=== PATIENT | female | born 1980 | race Caucasian/White ===

== ENCOUNTER 2023-03-11 09:03 | Observation (INO) | payer MEDICAID, SELFPAY ==
[2023-03-11] VITALS (8 sets, daily range): BP systolic 122–147; BP diastolic 70–98; PULSE 69–81; RESP 16–22; TEMP 36.5–36.7; O2SAT 96–100; BMI 42.0; BMI 41.4
--- NOTE | 2023-03-11 09:15 | ED.ABDPAIN1 ---
HPI - Abdominal Pain General Chief Complaint: Abdominal Pain Stated Complaint: FLANK PAIN Time Seen by Provider: 03/11/23 09:06 Source: patient Mode of arrival: walk-in Limitations: no limitations History of Present Illness HPI narrative: The patient presented to us with a almost 5 hours history of right-sided flank pain radiating to the suprapubic area associated with nausea no vomiting the pain is severe according to the patient There is no burning with urination or frequency and the patient denies any change in bowel movement History of hypertension hyperlipidemia Related Data Home Medications Medication Instructions Recorded Confirmed atorvastatin 80 mg tablet 80 mg PO DAILY 03/11/23 03/11/23 lisinopril 10 mg tablet 10 mg PO DAILY 03/11/23 03/11/23 metoprolol succinate 50 mg 50 mg PO DAILY 03/11/23 03/11/23 tablet,extended release 24 hr Allergies Allergy/AdvReac Type Severity Reaction Status Date / Time acetaminophen Allergy Mild Verified 03/11/23 09:10 [From Darvocet-N] propoxyphene Allergy Mild Verified 03/11/23 09:10 [From Darvocet-N] Review of Systems ROS Status of ROS 10 or more systems reviewed and unremarkable except as noted in history and below PFSH PFSH Social History Smoking status: Heavy tobacco smoker Exam Narrative Exam Narrative: Nurses notes and vital signs reviewed and patient is not hypoxic. General: Well-appearing and in no apparent distress. Skin: Warm, dry, no pallor noted. No rash. Head: Normocephalic, atraumatic. Neck: Supple, non-tender. Eye: Pupils are equal, round and EOMI. No scleral icterus. Ears, Nose, Mouth, and Throat: TM are clear, no nasal mucosal hypertrophy. Oral mucosa is moist, no posterior oropharynx erythema, uvula is mid-line Cardiovascular: Regular Rate and Rhythm without murmur, gallop or rub. Respiratory: No accessory muscle use or respiratory distress. Lungs are clear to auscultation, no wheezing, rales or rhonchi Chest Wall: no tenderness Back: No midline thoracic or lumbar vertebral tenderness. right CVA tenderness Musculoskeletal: normal ROM, no calf or popliteal tenderness, no lower extremity edema/swelling GI: Abdomen is soft, non-distended. Normal bowel sounds. suprapubic area tenderness Neurological: A&O x4. No cranial nerve dysfunction observed. No truncal ataxia. Moves all extremities. Sensation intact. Psychiatric: Cooperative and interactive. Normal mood and affect. Constitutional Vital Signs, click to edit/add: Last Vital Signs Temp 97.7 F 03/11/23 09:06 Pulse 77 03/11/23 10:43 Resp 18 03/11/23 10:43 BP 122/97 H 03/11/23 10:43 Pulse Ox 100 03/11/23 10:43 O2 Del Method Room Air 03/11/23 09:06 Course Vital Signs Vital signs: Vital Signs Temperature 97.7 F 03/11/23 09:06 Pulse Rate 70 03/11/23 09:06 Respiratory Rate 22 03/11/23 09:06 Blood Pressure 147/98 H 03/11/23 09:06 Pulse Oximetry 98 03/11/23 09:06 Oxygen Delivery Method Room Air 03/11/23 09:06 Temperature 97.7 F 03/11/23 09:06 Pulse Rate 77 03/11/23 10:43 Respiratory Rate 18 03/11/23 10:43 Blood Pressure 122/97 H 03/11/23 10:43 Pulse Oximetry 100 03/11/23 10:43 Oxygen Delivery Method Room Air 03/11/23 09:06 MDM - Abdominal Pain MDM Narrative Medical decision making narrative: The patient CBC shows leukocytosis chemistry was showing also some metabolic acidosis her lactic acid was 3.5 The patient have no tachycardia or hypotension and her urine shows some white blood cells but with the presentation right now and the fact that the CAT scan shows kidney stones the patient will be covered for possible UTI Blood culture and urine culture sent the patient was covered with Zosyn The patient case was discussed with Dr. Maldonado who will keep the patient n.p.o. right now we will admit her to the hospitalist care and Dr. Lindsay accepted the patient The patient CAT scan was discussed with the radiologist and apparently there is no obstruction in the right side 0.2 mm kidney stone at the UV junction The patient will continue hydration and monitoring in the hospital Lab Data Labs: Lab Results 03/11/23 03/11/23 03/11/23 Range/Units 09:10 09:14 09:15 WBC 14.7 H (4.0-11.0) 10^3/uL RBC 4.15 L (4.20-5.40) 10^6/uL Hgb 13.7 (12.0-16.0) g/dL Hct 40.7 (36.0-48.0) % MCV 98.1 (81.0-99.0) fL MCH 33.0 (26.7-34.0) pg MCHC 33.7 (29.9-35.2) g/dL RDW 12.1 (11.0-15.0) % Plt Count 463 H (150-450) 10^3/uL MPV 9.8 (9.5-13.5) fL Neut % (Auto) 73.8 (43.0-75.0) % Lymph % (Auto) 20.7 (20.5-60.0) % [place] % (Auto) 4.4 (1.7-12.0) % Eos % (Auto) 0.5 L (0.9-7.0) % Baso % (Auto) 0.4 (0.2-2.0) % Neut # (Auto) 10.9 H (1.4-6.5) 10^3/uL Lymph # (Auto) 3.1 (1.2-3.8) 10^3/uL [place] # (Auto) 0.7 (0.3-0.8) 10^3/uL Eos # (Auto) 0.1 (0.0-0.7) 10^3/uL Baso # (Auto) 0.1 (0.0-0.1) 10^3/uL Abs Immat Gran (auto) 0.03 (0.00-0.03) 10^3/uL Imm/Tot Granulo (auto) 0.2 (0.0-0.5) % Sodium 139 (136-145) mmol/L Potassium 3.6 (3.5-5.1) mmol/L Chloride 105 (98-107) mmol/L Carbon Dioxide 19.5 L (21.0-32.0) mmol/L Anion Gap 18.1 BUN 8.0 (7.0-18.0) mg/dL Creatinine 1.17 H (0.55-1.02) mg/dL Est GFR ( Amer) >60 (>=60) Est GFR (Non-Af Amer) 50 L (>=60) BUN/Creatinine Ratio 6.8 Glucose 155 H (74-106) mg/dL Lactate 3.5 H* (0.4-2.0) mmol/L Calcium 9.0 (8.5-10.1) mg/dL Total Bilirubin 0.4 (0.2-1.0) mg/dL AST 19 (15-37) U/L ALT 30 (14-59) U/L Alkaline Phosphatase 82 (46-116) U/L Total Protein 7.7 (6.4-8.2) g/dL Albumin 4.0 (3.4-5.0) g/dL Globulin 3.7 g/dL Albumin/Globulin Ratio 1.1 Serum HCG, Qual Negative (NEGATIVE) Urine Color Yellow (YELLOW) Urine Clarity Clear (CLEAR) Urine pH 5.5 (5.0-9.0) Ur Specific [place] >=1.030 A (1.005-1.025) Urine Protein Trace (NEG/TRACE) mg/dL Urine Glucose (UA) Negative (NEGATIVE) mg/dL Urine Ketones Negative (NEGATIVE) mg/dL Urine Occult Blood Moderate A (NEGATIVE) Urine Nitrite Negative (NEGATIVE) Urine Bilirubin Negative (NEGATIVE) Urine Urobilinogen 0.2 (0.2-1.0) EU/dL Ur Leukocyte Esterase Negative (NEGATIVE) Urine RBC 2-5 A (0-2) #/HPF Urine WBC 0-2 A (NONE SEEN) #/HPF Ur Squamous Epith Cells Moderate A (NONE/RARE) #/LPF Urine Crystals None seen (None Seen) #/HPF Urine Bacteria None seen (NONE SEEN) #/HPF Urine Casts Seen A (NONE SEEN) #/LPF Hyaline Casts Rare Urine Mucus Trace A (NONE SEEN) Ur Culture Indicated? No Discharge Plan Discharge Chief Complaint: Abdominal Pain Clinical Impression: UTI (urinary tract infection), Kidney calculi Patient Disposition: Admitted as Observation Time of Disposition Decision: 11:19 Condition: Good
--- NOTE | 2023-03-11 09:16 | CT_ITS ---
[address] [address] Patient Name: JESS ROBERTSON MRN: [id number] date: 1980 Sex: F Assigned Patient Location: ER Current Patient Location: ER Accession/Order Number: [id number] Exam Date: 03/11/2023 09:55 Report Date: 03/11/2023 10:43 At the request of: PEG TODD Procedure: CT abdomen pelvis wo con EXAM: CT abdomen pelvis wo con HISTORY: flank pain and possible kidney stone COMPARISON: 07/25/2022 TECHNIQUE: Axial CT imaging was performed through the abdomen and pelvis without intravenous contrast. Multiplanar reformats were performed. Dose reduction techniques were achieved by using automated exposure control and/or adjustment of mA and/or kV according to patient size and/or use of iterative reconstruction technique. FINDINGS: Lung bases: Lung bases are clear. No pleural effusion. GI upper: Small hiatal hernia. Liver: Normal size and contour. Gallbladder: No significant abnormality. No cholelithiasis. Biliary system: No intra or extrahepatic biliary ductal dilatation. Spleen: Normal size. Pancreas: Unremarkable. Adrenal glands: Normal adrenal glands. Kidneys/ureters: Normal contours. No hydronephrosis. There are multiple bilateral renal stones measuring up to 0.3 cm. There is a 0.2 2 cm stone at the right UV junction Vessels: No aneurysm. Lymph Nodes: No lymphadenopathy. Small bowel: No wall thickening or dilatation. Colon: No wall thickening or dilatation. Appendix: No findings of appendicitis. Peritoneal cavity: No free fluid or pneumoperitoneum. Lower : Unremarkable. Bones: No acute bony abnormality. Soft tissues: No acute finding. Additional findings: None. CT/CT abdomen pelvis wo con IMPRESSION: multiple bilateral nonobstructing renal stones measuring up to 0.3 cm. 0.2 cm nonobstructing stone at the right UV junction. Electronically authenticated by: JOANNE SAMUELS Date: 03/11/2023 10:43
[2023-03-11 09:30] LABS: Basophils Absolute Auto 0.1 10^3/uL (0.0-0.1); Basophils Percent Auto 0.4 % (0.2-2.0); Eosinophils Absolute Auto 0.1 10^3/uL (0.0-0.7); Eosinophils Percent Auto 0.5 % (0.9-7.0); Hematocrit 40.7 % (36.0-48.0); Hemoglobin 13.7 g/dL (12.0-16.0); Immature Granulocytes Abs Auto 0.03 10^3/uL (0.00-0.03); Immature Granulocytes Pct Auto 0.2 % (0.0-0.5); Lymphocytes Absolute Auto 3.1 10^3/uL (1.2-3.8); Lymphocytes Percent Auto 20.7 % (20.5-60.0); Mean Corpuscular HGB Conc 33.7 g/dL (29.9-35.2); Mean Corpuscular Volume 98.1 fL (81.0-99.0); Mean Platelet Volume 9.8 fL (9.5-13.5); Monocytes Absolute Auto 0.7 10^3/uL (0.3-0.8); Monocytes Percent Auto 4.4 % (1.7-12.0); Neutrophils Absolute Auto 10.9 10^3/uL (1.4-6.5); Neutrophils Percent Auto 73.8 % (43.0-75.0); Platelet Count 463 10^3/uL (150-450); Red Blood Count 4.15 10^6/uL (4.20-5.40); Red Cell Distribution Width 12.1 % (11.0-15.0); White Blood Count 14.7 10^3/uL (4.0-11.0)
[2023-03-11 09:31] LABS: Bilirubin Urine NEGATIVE (NEGATIVE); Blood Urine MODERATE (NEGATIVE); Clarity Urine CLEAR (CLEAR); Color Urine YELLOW (YELLOW); Glucose Urine UA NEGATIVE (NEGATIVE); Ketones Urine NEGATIVE (NEGATIVE); Leukocyte Esterase Urine NEGATIVE (NEGATIVE); Nitrite Urine NEGATIVE (NEGATIVE); Protein Urine TRACE mg/dL (NEG/TRACE); Specific Gravity Urine >=1.030 (1.005-1.025); Urobilinogen Urine 0.2 EU/dL (0.2-1.0); pH Urine 5.5 (5.0-9.0)
[2023-03-11] MEDS: KETOROLAC TROMETHAMINE 30 MG/ML VIAL 15 MG IVP (09:33)
[2023-03-11] MEDS: ONDANSETRON PF 4 MG/2 ML VIAL IV (09:33)
[2023-03-11] MEDS: 0.9 % SODIUM CHLORIDE 1,000 ML 1000 ML IV (09:33)
[2023-03-11] MEDS: FAMOTIDINE/PF 20 MG/2 ML VIAL IV (09:34)
[2023-03-11 09:37] LABS: HCG Qualitative NEGATIVE (NEGATIVE)
[2023-03-11 09:38] LABS: Urine Microscopic Indicated YES
[2023-03-11 09:40] LABS: Alanine Aminotransferase 30 U/L (14-59); Albumin Globulin Ratio 1.1; Alkaline Phosphatase 82 U/L (46-116); Anion Gap 18.1; Aspartate Amino Transferase 19 U/L (15-37); BUN Creatinine Ratio 6.8; Bilirubin Total 0.4 mg/dL (0.2-1.0); Carbon Dioxide 19.5 mmol/L (21.0-32.0); Chloride 105 mmol/L (98-107); Estimated GFR (African America >60 (>=60); Estimated GFR (Non-African Ame 50 (>=60); Globulin 3.7 g/dL; Glucose 155 mg/dL (74-106); Potassium 3.6 mmol/L (3.5-5.1); Sodium 139 mmol/L (136-145); Total Protein 7.7 g/dL (6.4-8.2)
[2023-03-11 09:42] LABS: Bacteria Urine NONE SEEN #/HPF (NONE SEEN); Mucus Urine TRACE (NONE SEEN); Squamous Epithelial Cell Urine MODERATE #/LPF (NONE/RARE); WBC Urine 0-2 #/HPF (NONE SEEN)
[2023-03-11 09:43] LABS: Cast Seen? SEEN #/LPF (NONE SEEN); Crystals Seen? None Seen #/HPF (None Seen); Hyaline Casts Urine RARE; Urine Culture Indicated NO
[2023-03-11 10:08] LABS: Lactate/Lactic Acid 3.5 mmol/L (0.4-2.0)
[2023-03-11] MEDS: PIPERACILLIN SODIUM/TAZOBACTAM 4.5 GM in 0.9 % SODIUM CHLORIDE 50 ML IV (10:37)
--- NOTE | 2023-03-11 13:17 | P.HP_ITS ---
H&P: HPI History of Present Illness Chief complaint: FLANK PAIN Narrative: Patient with a history of nephrolithiasis presented to the emergency room with right flank pain. Similar to her previous episodes of kidney stone. Found to have a 2 mm stone at the UV junction. Typically will be discharged with just a 2 mm stone with patient had a positive lactate, leukocytosis, significant dehydration so patient was placed on IV antibiotics and IV fluids. Admitted for work-up and treatment of same Review of Systems ROS Status of ROS 10 or more systems reviewed and unremarkable except as noted in history and below PFSH [facility] Medical History (Updated 03/11/23 @ 12:01 by Linda Díaz) Cardiac arrest ?I46.9 - Cardiac arrest, cause unspecified (ICD-10) Myocardial infarct ?I21.9 - Acute myocardial infarction, unspecified (ICD-10) Sinus drainage ?J34.89 - Other specified disorders of nose and nasal sinuses (ICD-10) Surgical History (Updated 03/11/23 @ 11:58 by Linda Díaz) H/O heart artery stent ?Z95.5 - Presence of coronary angioplasty implant and graft (ICD-10) H/O sinus surgery ?Z98.890 - Other specified postprocedural states (ICD-10) History of tonsillectomy ?Z90.89 - Acquired absence of other organs (ICD-10) Social History Smoking status: Heavy tobacco smoker Meds Home Medications and Allergies Home Medications Medication Instructions Recorded Confirmed Type aspirin 81 mg tablet,delayed 81 mg PO DAILY 03/11/23 03/11/23 History release atorvastatin 80 mg tablet 80 mg PO DAILY 03/11/23 03/11/23 History diphenhydramine HCl 25 mg tablet 100 mg PO Q6H 03/11/23 03/11/23 History (Allergy) lisinopril 10 mg tablet 10 mg PO DAILY 03/11/23 03/11/23 History metoprolol succinate 50 mg 50 mg PO DAILY 03/11/23 03/11/23 History tablet,extended release 24 hr omeprazole 40 mg capsule,delayed 40 mg PO BID 03/11/23 03/11/23 History release Allergies Allergy/AdvReac Type Severity Reaction Status Date / Time acetaminophen Allergy Mild Verified 03/11/23 09:10 [From Darvocet-N] propoxyphene Allergy Mild Verified 03/11/23 09:10 [From Darvocet-N] Exam Constitutional Vital Signs, click to edit/add: Last Vital Signs Temp 97.7 F 03/11/23 09:06 Pulse 80 03/11/23 11:19 Resp 18 03/11/23 11:19 BP 130/90 03/11/23 11:19 Pulse Ox 100 03/11/23 11:19 O2 Del Method Room Air 03/11/23 09:06 Documenting provider has reviewed patient's vital signs: yes Common normals: no apparent distress Chest Common normals: inspection of chest normal Respiratory Common normals: normal respiratory effort Cardio Common normals: no JVD, regular rate and regular rhythm Common normals: no CVA tenderness Results Labs Labs: Short CBC 03/11/23 Range/Units 09:15 WBC 14.7 H (4.0-11.0) 10^3/uL Hgb 13.7 (12.0-16.0) g/dL Hct 40.7 (36.0-48.0) % Plt Count 463 H (150-450) 10^3/uL BMP 03/11/23 09:15 Sodium 139 Potassium 3.6 Chloride 105 Carbon Dioxide 19.5 L BUN 8.0 Creatinine 1.17 H Glucose 155 H Calcium 9.0 Liver Function 03/11/23 Range/Units 09:15 Total Bilirubin 0.4 (0.2-1.0) mg/dL AST 19 (15-37) U/L ALT 30 (14-59) U/L Alkaline Phosphatase 82 (46-116) U/L Albumin 4.0 (3.4-5.0) g/dL Urine 03/11/23 Range/Units 09:10 Urine Color Yellow (YELLOW) Urine Clarity Clear (CLEAR) Urine pH 5.5 (5.0-9.0) Ur Specific [place] >=1.030 A (1.005-1.025) Urine Protein Trace (NEG/TRACE) mg/dL Urine Glucose (UA) Negative (NEGATIVE) mg/dL Assessment and Plan Assessment and Plan (1) UTI (urinary tract infection): (2) Kidney calculi: (3) Cardiac arrest: (4) H/O heart artery stent: Plan Uncontrolled hypertension, leukocytosis, thrombocythemia, elevated creatinine secondary to dehydration with a positive lactate likely pyelonephritis complicated by 2 mm stone at the ureterovesical junction. Case was discussed with urology. Patient recommended for admission. Patient will be admitted to observation, placed on IV fluids, IV antibiotics, cultures are pending. That includes blood and urine cultures. Patient currently is pain-free. Significant coronary artery disease history. Stent placed. No chest pain, no shortness of breath. Hypercholesterolemia on medication
[2023-03-11 14:11] LABS: Lactate/Lactic Acid 2.1 mmol/L (0.4-2.0)
[2023-03-11] MEDS: CEFTRIAXONE 1,000 MG in 0.9 % SODIUM CHLORIDE 50 ML 100 MG IV (15:13)
[2023-03-11] MEDS: TAMSULOSIN HCL 0.4 MG CAPSULE PO (15:13)
[2023-03-11] MEDS: HYOSCYAMINE SULFATE 0.125 MG TAB.SUBL SL (15:13)
[2023-03-11] MEDS: LACTATED RINGER'S SOLUTION 1,000 ML 100 ML IV (15:13)
[2023-03-11] MEDS: LEVOFLOXACIN IN DEXTROSE 5 % 750 MG/150 ML IV.SOLN 100 MG IV (16:52)
[2023-03-11 17:00] LABS: Lactate/Lactic Acid 1.2 mmol/L (0.4-2.0)
[2023-03-11] MEDS: ACETAMINOPHEN 500 MG TABLET 1000 MG PO (18:42)
[2023-03-11] MEDS: OMEPRAZOLE 40 MG CAPSULE.DR PO (20:50)
[2023-03-12] MEDS: LACTATED RINGER'S SOLUTION 1,000 ML 100 ML IV (02:00)
[2023-03-12 04:27] VITALS: BP 119/70; PULSE 96; RESP 16; TEMP 36.5; O2SAT 94
[2023-03-12 06:00] LABS: Basophils Absolute Auto 0.1 10^3/uL (0.0-0.1); Basophils Percent Auto 0.6 % (0.2-2.0); Eosinophils Absolute Auto 0.1 10^3/uL (0.0-0.7); Eosinophils Percent Auto 1.1 % (0.9-7.0); Hematocrit 34.4 % (36.0-48.0); Hemoglobin 11.4 g/dL (12.0-16.0); Immature Granulocytes Abs Auto 0.03 10^3/uL (0.00-0.03); Immature Granulocytes Pct Auto 0.3 % (0.0-0.5); Lymphocytes Absolute Auto 2.6 10^3/uL (1.2-3.8); Lymphocytes Percent Auto 28.9 % (20.5-60.0); Mean Corpuscular HGB Conc 33.1 g/dL (29.9-35.2); Mean Corpuscular Volume 99.7 fL (81.0-99.0); Mean Platelet Volume 10.2 fL (9.5-13.5); Monocytes Absolute Auto 0.6 10^3/uL (0.3-0.8); Neutrophils Absolute Auto 5.5 10^3/uL (1.4-6.5); Neutrophils Percent Auto 62.1 % (43.0-75.0); Platelet Count 305 10^3/uL (150-450); Red Blood Count 3.45 10^6/uL (4.20-5.40); Red Cell Distribution Width 12.4 % (11.0-15.0); White Blood Count 8.9 10^3/uL (4.0-11.0)
[2023-03-12 06:29] LABS: Anion Gap 13.8; BUN Creatinine Ratio 10.1; Calcium 7.9 mg/dL (8.5-10.1); Carbon Dioxide 21.7 mmol/L (21.0-32.0); Chloride 110 mmol/L (98-107); Estimated GFR (African America >60 (>=60); Estimated GFR (Non-African Ame >60 (>=60); Glucose 91 mg/dL (74-106); Potassium 3.5 mmol/L (3.5-5.1); Sodium 142 mmol/L (136-145)
[2023-03-12] MEDS: METOPROLOL SUCCINATE 50 MG TAB.ER.24H PO (08:06)
[2023-03-12] MEDS: TAMSULOSIN HCL 0.4 MG CAPSULE PO (08:06)
[2023-03-12] MEDS: LISINOPRIL 10 MG TABLET PO (08:06)
[2023-03-12] MEDS: OMEPRAZOLE 40 MG CAPSULE.DR PO (08:06)
[2023-03-12] MEDS: ACETAMINOPHEN 500 MG TABLET 1000 MG PO (08:07)
[2023-03-12 08:11] VITALS: BP 113/76; PULSE 83
--- NOTE | 2023-03-12 08:25 | XR_ITS ---
The [address] [address] Patient Name: JESS ROBERTSON MRN: [id number] date: 1980 Sex: F Assigned Patient Location: MS Current Patient Location: Accession/Order Number: [id number] Exam Date: 03/12/2023 09:00 Report Date: 03/12/2023 09:37 At the request of: ELENI OROZCO Procedure: XR abdomen 1V EXAM: XR abdomen 1V HISTORY: kidney stone COMPARISON: 03/11/2023 TECHNIQUE: Abdominal X-ray, 1 view FINDINGS: Support devices: None. Bowel: Unremarkable bowel gas pattern. No bowel dilatation. There are 2 tiny (0.2 cm) stones overlying the expected left kidney, representing nephrolithiasis. Additional findings: None. XR/XR abdomen 1V IMPRESSION: 2 tiny (0.2 cm) stones overlying the expected left kidney, representing nephrolithiasis. Electronically authenticated by: JOANNE SAMUELS Date: 03/12/2023 09:37
[2023-03-12] MEDS: CALCIUM CARBONATE 500 MG (200MG ELEMENTAL) TAB CHEW PO (09:38)
[2023-03-12 09:40] VITALS: O2SAT 96
--- NOTE | 2023-03-12 10:33 | P.DS_ITS ---
DS: Providers Provider Date of admission: 03/11/23 11:41 Primary care physician: Marco A Palmer MD Consults: 03/11/23 12:26 Consult to Urology Routine Consulting Provider: Michael Maldonado Reason for consultation: Nephrolithiasis Has provider been notified: Yes DS: Diagnosis Discharge Diagnosis (1) UTI (urinary tract infection): (2) Kidney calculi: (3) Cardiac arrest: (4) H/O heart artery stent: Plan Uncontrolled hypertension, leukocytosis, thrombocythemia, elevated creatinine secondary to dehydration with a positive lactate likely pyelonephritis complicated by 2 mm stone at the ureterovesical junction. Significant coronary artery disease history. Stent placed. Hypercholesterolemia Iron deficiency anemia Thrombocythemia Hypocalcemia DS: Summary Hospital Course Hospital Course: Patient presented to the emergency room with flank pain. She does have a history of kidney stones. This felt similar to her previous kidney stone. In ER found of a 2 mm stone obstructing at the ureterovesical junction. At that size the plan was to send her home however she did come back with positive lactate level, thrombocythemia, leukocytosis, acute kidney injury-with that and possible pyelonephritis with a stone patient was admitted for observation. Blood cultures are pending. She was placed on IV antibiotics. Fluids. Levsin, Flomax. With a combination of treatment as she is improved today. White blood cell count is down to normal. Her thrombocythemia is also down to normal. Her kidney function has returned to normal. She does have some mild hypocalcemia and recommended Tums. She did pass 2 small stones however tumor still presents we will send patient home with Levsin and Flomax. Patient overall much improved. She does have a history of extensive heart disease, status post stenting. She is having no chest pain or shortness of breath similar to that episode. Patient discharged home in improving condition. Medications see list. Follow-up with her PCP within the next week. Check with her urology if they require further follow-up Time Spent with Patient Time attestation: Total time spent providing and/or coordinating discharge services: Exam Constitutional Vital Signs, click to edit/add: Last Vital Signs Temp 97.7 F 03/12/23 04:27 Pulse 83 03/12/23 08:11 Resp 16 03/12/23 04:27 BP 113/76 03/12/23 08:11 Pulse Ox 96 03/12/23 09:40 O2 Del Method Room Air 03/12/23 09:40 Documenting provider has reviewed patient's vital signs: yes Common normals: no apparent distress Chest Common normals: inspection of chest normal Respiratory Common normals: normal respiratory effort Cardio Common normals: no JVD, regular rate and regular rhythm Common normals: no CVA tenderness DS: Data Data Completed and Pending Labs on day of discharge: Labs from last 24 hours 03/12/23 03/11/23 03/11/23 05:16 16:28 13:35 WBC 8.9 RBC 3.45 L Hgb 11.4 L Hct 34.4 L MCV 99.7 H MCH 33.0 MCHC 33.1 RDW 12.4 Plt Count 305 MPV 10.2 Neut % (Auto) 62.1 Lymph % (Auto) 28.9 [place] % (Auto) 7.0 Eos % (Auto) 1.1 Baso % (Auto) 0.6 Neut # (Auto) 5.5 Lymph # (Auto) 2.6 [place] # (Auto) 0.6 Eos # (Auto) 0.1 Baso # (Auto) 0.1 Abs Immat Gran (auto) 0.03 Imm/Tot Granulo (auto) 0.3 Sodium 142 Potassium 3.5 Chloride 110 H Carbon Dioxide 21.7 Anion Gap 13.8 BUN 10.0 Creatinine 0.99 Est GFR ( Amer) >60 Est GFR (Non-Af Amer) >60 BUN/Creatinine Ratio 10.1 Glucose 91 Lactate 1.2 2.1 H Calcium 7.9 L Discharge Plan Discharge Disposition: Home, Self-Care Condition: Good Discharge Medications: New cefdinir 300 mg capsule 300 mg PO Q12H 10 Days Qty: 20 0RF tamsulosin [Flomax] 0.4 mg capsule 0.4 mg PO Q24H Qty: 14 0RF hyoscyamine sulfate [Levsin/SL] 0.125 mg tablet, sublingual 0.125 mg PO Q6H PRN (Reason: kidney stone) Qty: 20 0RF Continued atorvastatin 80 mg tablet 80 mg PO DAILY lisinopril 10 mg tablet 10 mg PO DAILY metoprolol succinate 50 mg tablet extended release 24 hr 50 mg PO DAILY omeprazole 40 mg capsule,delayed release(DR/EC) 40 mg PO BID diphenhydramine HCl [Allergy] 25 mg tablet 100 mg PO Q6H Patient Comments: takes to keep her ears open aspirin 81 mg tablet,delayed release (DR/EC) 81 mg PO DAILY Activity: resume usual activities as tolerated Diet: advance to your usual diet Patient Instructions: Hyoscyamine (By mouth), Tamsulosin (By mouth), Cefdinir (By mouth), Kidney Stones (DC), Urinary Tract Infection in Women (DC) Forms: Portal Instructions Follow Up Appointments: Follow up with Dr. Palmer within 1 week, call monday to make appointment Office # Discharge Date/Time: 03/12/23 11:04
--- NOTE | 2023-03-13 14:09 | CM.DCFOLLOWU ---
Person spoke with: patient How are you feeling? well How is your pain? no pain Did you understand your discharge instructions? yes Do you have any questions about your discharge instructions? no Were you given any prescriptions at discharge? yes Were you able to get your prescriptions filled? yes Do you understand how to take your medications as ordered? yes Do you have any questions about your follow up appointment and do you plan to keep your follow up appointment? no questions, will call today to schedule follow up Is there anything else that you would like to discuss? no Questions/Comments/Concerns/Other:
== END 2023-03-12 11:04 | disposition home or self-care (01) ==
LOC: ER 11:19 → MS 11:47
PROVIDERS: Admitting Provider Family Medicine; Emergency Provider Emergency Medicine; PCP Family Medicine; Visit Provider Family Medicine
DX: N20.0 Calculus of kidney (principal); N39.0 Urinary tract infection, site not specified; I10 Essential (primary) hypertension; D69.6 Thrombocytopenia, unspecified; E78.00 Pure hypercholesterolemia, unspecified; E83.51 Hypocalcemia; D50.9 Iron deficiency anemia, unspecified; E86.0 Dehydration; I25.10 Atherosclerotic heart disease of native coronary artery without angina pectoris; D72.829 Elevated white blood cell count, unspecified; R79.89 Other specified abnormal findings of blood chemistry; F17.210 Nicotine dependence, cigarettes, uncomplicated; Z79.899 Other long term (current) drug therapy; Z79.82 Long term (current) use of aspirin; Z87.442 Personal history of urinary calculi; Z86.74 Personal history of sudden cardiac arrest; I25.2 Old myocardial infarction; Z95.5 Presence of coronary angioplasty implant and graft; Z90.89 Acquired absence of other organs; Z98.890 Other specified postprocedural states
CPT/HCPCS: 36415; 74018; 74176; 80048; 80053; 81001; 83605; 84703; 85025; 87040; 94761; 96365; 96366; 96367; 96375; 99285; G0328; G0378

== ENCOUNTER 2023-08-22 10:30 | Outpatient (OUT) | payer MEDICAID, SELFPAY ==
--- OUTSIDE RECORDS SUMMARY | 2023-08-22 10:35 | XMS_ITS | CCD ---
Author Organization [facility] Care Team Providers Care Supervisor Purification Name Role Phone KSENIA GUADARRAMA Attending Unavailable CHERELLE ., DR MAST Admitting Unavailable CELESTINE, DR WILI [facility] Unavailable KHANH, DR KRISTINE Michaels Consulting Unavailable CHERELLE ., DR MAST Attending Unavailable CHERELLE ., DR MAST Consulting Unavailable RAMSEY ., BRIAN Consulting Unavailable AYANA KINNEY Consulting Unavailable KIMMIE ., DR GUARDADO Attending Unavailable KIMMIE ., DR GUARDADO Admitting Unavailable KIMMIE ., DR GUARDADO Consulting Unavailable CELESTINE, DR WILI Shelby Primary [facility] Unavailable CELESTINE, WILI Attending Unavailable NADHU, WILI Attending Unavailable Allergies Allergy Classification Reported Allergen(s) Allergy Type Date of Onset Reaction(s) Facility (1 source) PROPOXYPHENE N-ACETAMINOPHEN; Translations: [PROPOXYPHENE N-ACETAMINOPHEN] Propensity to adverse reactions to drug (disorder) 3 [facility] Repository (1 source) Darvocet-N 100 Drug allergy (disorder) 7 [facility] Repository Problems Active Problems Problem Classification Problem Date Documented Date Episodic/Chronic Abdominal pain (4 sources) Unspecified abdominal pain; Translations: [UNSPECIFIED ABDOMINAL PAIN] Onset: 07-25-2022 Episodic Coronary atherosclerosis and other heart disease (3 sources) Atherosclerotic heart disease of [place] coronary artery without angina pectoris; Translations: [Old myocardial infarction] Onset: 05-13-2022 Chronic Disorders of lipid metabolism (2 sources) Pure hypercholesterolemia, unspecified; Translations: [Pure hypercholesterolemia, unspecified] Onset: 05-13-2022 Chronic Esophageal disorders (1 source) Gastro-esophageal reflux disease without esophagitis; Translations: [GERD WITHOUT ESOPHAGITIS] Onset: 07-26-2022 Chronic Essential hypertension (2 sources) Essential (primary) hypertension; Translations: [Essential (primary) hypertension] Onset: 05-13-2022 Chronic Other aftercare (1 source) custodial (current) use of aspirin; Translations: [WELDER APPRENTICE ARC CURRENT USE OF ASPIRIN] Onset: 07-26-2022 Episodic Other aftercare (1 source) Other ferry terminal agent (current) drug therapy; Translations: [OTH WELDER APPRENTICE ARC CURRENT DRUG THERAPY] Onset: 07-26-2022 Episodic Screening and history of mental health and substance abuse codes (1 source) Personal history of nicotine dependence; Translations: [PERSONAL HISTORY OF NICOTINE DEPEND] Onset: 07-26-2022 Episodic Substance-related disorders (2 sources) Nicotine dependence, unspecified, uncomplicated; Translations: [Nicotine dependence, unspecified, uncomplicated] Onset: 05-13-2022 Chronic Past or Other Problems Problem Classification Problem Date Documented Date Episodic/Chronic Immunizations and screening for infectious disease (1 source) Encounter for screening for human papillomavirus (HPV); Translations: [ENC SCREENING HUMAN PAPILLOMAVIRUS] Onset: 02-02-2022 Episodic Other screening for suspected conditions (not mental disorders or infectious disease) (4 sources) Encounter for screening for malignant neoplasm of cervix; Translations: [ENC SCREENING MALIG NEOPLASM CERV] Onset: 02-01-2022 Episodic Results Test Name Value Interpretation Reference Range Facility CBC AUTO DIFFon 07-25-2022 BASO # 0.1 103/ul Normal 0.0-0.1 [facility] Comment on above: Performed By: #### C BC #### [facility] [address] [place] [address] Dr. Tali Dai Basophils/100 WBC (Bld) 0.6 % Normal 0.2-2.0 [facility] Comment on above: Performed By: #### C BC #### [facility] [address] [place] [address] Dr. Tali Dai EO # 0.2 103/ul Normal 0.0-0.7 [facility] Comment on above: Performed By: #### C BC #### [facility] [address] [place] [address] Dr. Tali Dai Eosinophils/100 WBC (Bld) 1.9 % Normal 0.9-7.0 [facility] Comment on above: Performed By: #### C BC #### [facility] [address] [place] [address] Dr. Tali Dai Erythrocyte distribution width (RBC) [Ratio] 13.1 % Normal 11.0-15.0 [facility] Comment on above: Performed By: #### C BC #### [facility] [address] [place] [address] Dr. Tali Dai Hematocrit (Bld) [Volume fraction] 39.9 % Normal 36.0-48.0 [facility] Comment on above: Performed By: #### C BC #### [facility] [address] [place] [address] Dr. Tali Dai Hemoglobin (Bld) [Mass/Vol] 13.6 g/dL Normal 12.0-16.0 [facility] Comment on above: Performed By: #### C BC #### [facility] [address] [place] [address] Dr. Tali Dai IG # 0.03 10e3/ul Normal 0.00-0.03 [facility] Comment on above: Performed By: #### C BC #### [facility] [address] [place] [address] Dr. Tali Dai IG % 0.3 % Normal 0.0-0.5 [facility] Comment on above: Performed By: #### C BC #### [facility] [address] [place] [address] Dr. Tali Dai LYMPH # 2.9 103/ul Normal 1.2-3.8 [facility] Comment on above: Performed By: #### C BC #### [facility] [address] [place] [address] Dr. Tali Dai Lymphocytes/100 WBC (Bld) 27.0 % Normal 20.5-60.0 [facility] Comment on above: Performed By: #### C BC #### [facility] [address] [place] [address] Dr. Tali Dai MANUAL DIFF REQ NO Normal [facility] Comment on above: Performed By: #### C BC #### [facility] [address] [place] [address] Dr. Tali Dai MCH (RBC) [Entitic mass] 32.4 pg Normal 26.7-34.0 [facility] Comment on above: Performed By: #### C BC #### [facility] [address] [place] [address] Dr. Tali Dai MCHC (RBC) [Mass/Vol] 34.1 g/dL Normal 29.9-35.2 [facility] Comment on above: Performed By: #### C BC #### [facility] [address] [address] [address] Tali Dai MCV (RBC) [Entitic vol] 95.0 fL Normal 81.0-99.0 [facility] Comment on above: Performed By: #### C BC #### [facility] [address] [place] [address] Dr. Tali Dai MONO # 0.7 103/ul Normal 0.3-0.8 [facility] Comment on above: Performed By: #### C BC #### [facility] [address] [place] [address] Dr. Tali Dai Monocytes/100 WBC (Bld) 6.3 % Normal 1.7-12.0 [facility] Comment on above: Performed By: #### C BC #### [facility] [address] [place] [address] Dr. Tali Dai NEUT # 6.8 103/ul Critically high 1.4-6.5 [facility] Comment on above: Performed By: #### C BC #### [facility] [address] [place] [address] Dr. Tali Dai Neutrophils/100 WBC (Bld) 63.9 % Normal 43.0-75.0 [facility] Comment on above: Performed By: #### C BC #### [facility] [address] [place] [address] Dr. Tali Dai Platelet mean volume (Bld) [Entitic vol] 9.2 fL Critically low 9.5-13.5 [facility] Comment on above: Performed By: #### C BC #### [facility] [address] [place] [address] Dr. Tali Dai PLT 375 103/ul Normal 150-450 [facility] Comment on above: Performed By: #### C BC #### [facility] [address] [address] [address] Tali Dai RBC 4.20 106/ul Normal 4.20-5.40 [facility] Comment on above: Performed By: #### C BC #### [facility] [address] [address] [address] Tali Dai WBC 10.6 103/ul Normal 4.0-11.0 [facility] Comment on above: Performed By: #### C BC #### [facility] [address] ABD/PELVIS WO CONon 07-25 CT ABD/PELVIS WO CON EXAMINATION: CT ABD/PELVIS WO CON HISTORY: Left sided abdominal pain , acute COMPARISON: No relevant comparison available. TECHNIQUE: Axial, Coronal, and Sagittal images were obtained without and/or with IV contrast as indicated by examination type. Dose reduction techniques were achieved by using automated exposure control and/or adjustment of mA and/or kV according to patient size and/or use of iterative reconstruction technique. FINDINGS: LUNG BASES: No visible pulmonary or pleural disease. LIVER: No enlargement, atrophy, suspicious density, or significant focal lesion. BILIARY: No dilatation or calcification. PANCREAS: No lesion, fluid collection, or abnormal duct dilatation. SPLEEN: No enlargement or focal lesion. ADRENALS: No mass or enlargement. KIDNEYS: Several small nonobstructing stones within both kidneys. BOWEL/MESENTERY: Mild haziness of the pericolonic fat adjacent the mid descending colon. No visible mass, obstruction, or bowel wall thickening. AORTA/VASCULAR: No aneurysm or dissection. RETROPERITONEUM: No mass or adenopathy. LYMPH NODES: No adenopathy. URINARY BLADDER: No visible focal wall thickening, lesion, or calculus. PELVIC ORGANS: No visible mass. Pelvic organs appropriate for patient age. ABDOMINAL WALL: No mass or hernia. BONES: No bony lesion or fracture. OTHER: Negative. IMPRESSION: 1.Very mild inflammatory changes adjacent the descending colon; possible mild colitis. 2.Bilateral nonobstructing nephrolithiasis. Electronically authenticated by: KRISTINE CASSIDY Date: 2022-07-25 07:51 Normal [facility] ER URINE PROFILEon 3 Bilirubin Ql (U) Negative Normal NEGATIVE [facility] Comment on above: Performed By: #### E RUR #### [facility] [address] [place] [address] Dr. Tali Dai Clarity (U) CLEAR Normal CLEAR [facility] Comment on above: Performed By: #### E RUR #### [facility] [address] [place] [address] Dr. Tali Dai Color (U) LT. YELLOW Normal YELLOW [facility] Comment on above: Performed By: #### E RUR #### [facility] [address] [place] [address] Dr. Tali PANIAGUA A micrscopic examination will be performed if indicated. Normal [facility] Comment on above: Performed By: #### E RUR #### [facility] [address] [place] [address] Dr. Tali Dai Glucose Ql (U) Negative Normal NEGATIVE [facility] Comment on above: Performed By: #### E RUR #### [facility] [address] [place] [address] Dr. Tali Dai Hemoglobin Ql (U) Negative Normal NEGATIVE [facility] Comment on above: Performed By: #### E RUR #### [facility] [address] [place] [address] Dr. Tali Dai Ketones Ql (U) Negative Normal NEGATIVE [facility] Comment on above: Performed By: #### E RUR #### [facility] [address] [place] [address] Dr. Tali Dai LEUKOCYTES Negative Normal NEGATIVE [facility] Comment on above: Performed By: #### E RUR #### [facility] [address] [place] [address] Dr. Tali Dai Nitrite Ql (U) Negative Normal NEGATIVE [facility] Comment on above: Performed By: #### E RUR #### [facility] [address] [place] [address] Dr. Tali Dai pH (U) 6.0 [pH] Normal 5-9 [facility] Comment on above: Performed By: #### E RUR #### [facility] [address] [place] [address] Dr. Tali Dai SPEC GRAVITY 1.020 Normal 1.005-<=1.025 [facility] Comment on above: Performed By: #### E RUR #### [facility] [address] [place] [address] Dr. Tali Dai UA PROTEIN Negative Normal NEGATIVE/ TRACE [facility] Comment on above: Performed By: #### E RUR #### [facility] [address] [place] [address] Dr. Tali Dai UR MICRO IND NOT INDICATED Normal [facility] Comment on above: Performed By: #### E RUR #### [facility] [address] [place] [address] Dr. Tali Dai Urobilinogen Qn (U) 0.2 {Jefe'U}/dL Normal 0.2 - 1. 0 [facility] Comment on above: Performed By: #### E RUR #### [facility] [address] [place] [address] Dr. Tali Dai LIPASEon 07-25-2022 Lipase [Catalytic activity/Vol] 254.0 U/L Normal 73.0-393.0 [facility] Comment on above: Performed By: #### L IPA, HSTROPN #### [facility] [address] [place] [address] Dr. Tali Dai PROF 14(COMP METB)on 023 Albumin [Mass/Vol] 3.7 g/dL Normal 3.4-5.0 [facility] Comment on above: Performed By: #### C MP #### [facility] [address] [place] [address] Dr. Tali Dai Albumin/Globulin [Mass ratio] 1.1 {ratio} Normal [facility] Comment on above: Performed By: #### C MP #### [facility] [address] [place] [address] Dr. Tali Dai ALP [Catalytic activity/Vol] 66 U/L Normal 46-116 [facility] Comment on above: Performed By: #### C MP #### [facility] [address] [place] [address] Dr. Tali Dai ALT [Catalytic activity/Vol] 30 U/L Normal 14-59 [facility] Comment on above: Performed By: #### C MP #### [facility] [address] [place] [address] Dr. Tlai Dai Anion gap [Moles/Vol] 13.5 mmol/L Normal [facility] Comment on above: Performed By: #### C MP #### [facility] [address] [place] [address] Dr. Tali Dai AST [Catalytic activity/Vol] 19 U/L Normal 15-37 [facility] Comment on above: Performed By: #### C MP #### [facility] [address] [place] [address] Dr. Tali Dai Bilirubin [Mass/Vol] 0.4 mg/dL Normal 0.2-1.0 [facility] Comment on above: Performed By: #### C MP #### [facility] [address] [place] [address] Dr. Tali Dai Calcium [Mass/Vol] 9.1 mg/dL Normal 8.5-10.1 [facility] Comment on above: Performed By: #### C MP #### [facility] [address] [place] [address] Dr. Tail Dai Chloride [Moles/Vol] 107 mmol/L Normal 98-107 [facility] Comment on above: Performed By: #### C MP #### [facility] [address] [place] [address] Dr. Tali Dai CO2 [Moles/Vol] 25.3 mmol/L Normal 21.0-32.0 [facility] Comment on above: Performed By: #### C MP #### [facility] [address] [place] [address] Dr. Tali Dai Creatinine [Mass/Vol] 0.95 mg/dL Normal 0.55-1.02 [facility] Comment on above: Performed By: #### C MP #### [facility] [address] [address] [address] Tali Dai EGFR-AF GABONESE >60 Normal >=60 [facility] Comment on above: Performed By: #### C MP #### [facility] [address] [address] [address] Tali Dai EGFR-NON AF GABONESE >60 Normal >=60 [facility] Comment on above: Performed By: #### C MP #### [facility] [address] [address] [address] Tali Dai Globulin (S) [Mass/Vol] 3.4 g/dL Normal [facility] Comment on above: Performed By: #### C MP #### [facility] [address] [place] [address] Dr. Tali Dai Glucose [Mass/Vol] 96 mg/dL Normal 74-106 [facility] Comment on above: Performed By: #### C MP #### [facility] [address] [address] [address] Tali Dai Potassium [Moles/Vol] 3.8 mmol/L Normal 3.5-5.1 [facility] Comment on above: Performed By: #### C MP #### [facility] [address] [place] [address] Dr. Tali Dai Protein [Mass/Vol] 7.1 g/dL Normal 6.4-8.2 [facility] Comment on above: Performed By: #### C MP #### [facility] [address] [address] [address] Tali Dai Sodium [Moles/Vol] 142 mmol/L Normal 136-145 [facility] Comment on above: Performed By: #### C MP #### [facility] [address] [address] [address] Tali Dai Urea nitrogen [Mass/Vol] 11.0 mg/dL Normal 7.0-18.0 [facility] Comment on above: Performed By: #### C MP #### [facility] [address] [address] [address] Tali Dai Urea nitrogen/Creatinine [Mass ratio] 11.6 mg/mg Normal [facility] Comment on above: Performed By: #### C MP #### [facility] [address] [address] [address] Tali Dai TROPONIN, HIGH SENSITIVITYon 07-25-2022 HSTROP 4.0 pg/mL Normal 4.0-51.3 [facility] Comment on above: Result Comment: CUT- OFF POINTS HAVE BEEN ESTABLISHED BASED ON THE FOURTH UNIVERSAL DEFINITIONS OF MYOCARDIAL INFARCTION. THE UPPER REFERENCE LIMIT (URL) OF TROPONIN, DEFINED THE 99TH PERCENTILE OF cTnI DISTRIBUTION IN A REFERENCE POPULATION, HAS BEEN CONFIRMED THE DECISION THRESHOLD FOR [place] DIAGNOSIS. Performed By: #### L IPA, HSTROPN #### [facility] [address] [address] [address] Tali Dai XR ABD FLAT UP_PA Lawanda 07-25 XR ABD FLAT UP_PA CH EXAM: XR ABD FLAT UP_PA CH HISTORY: Left sided abdominal pain COMPARISON: Chest x-ray 09/16/2020 TECHNIQUE AND FINDINGS: PA view of the chest. Supine and upright views of the abdomen. Cardiomediastinal silhouette appears within normal limits. Lungs and pleural spaces are clear. Gas throughout the bowel loops without significant distention seen. Gas and stool in the colon. No evidence of pneumoperitoneum. No pathologic calcifications detected. Pelvic phleboliths. Osseous structures show no gross acute abnormality. Mild degenerative changes of the spine with mild to moderate S-shaped thoracolumbar scoliosis. IMPRESSION: 1. No acute findings in the chest. 2. Nonspecific, likely nonobstructive bowel gas pattern. No free air detected. If concern persists, consider follow-up radiographs and/or CT. Electronically authenticated by: AYANA KINNEY Date: 2022-07-25 07:23 Normal [facility] Office Visiton 07-15-2022 Follow-up visit [id number] Jess Robertson 1980 F Date Provider Department Center 07/15/2022 KSENIA PEREYRA [facility] No family history on file Level of Service:03800 CT OFFICE/OUTPATIENT ESTABLISHED MOD MDM 30-39 MIN Reason for Visit and Comments: Follow-up [347447] Normal [facility] 36on 05-13-2022 34 Approving, but needs appt for additional refills. Normal [facility] PAP ACOG PANEL 2: 30 to 65on 02-08-2022 . . Normal [facility] Comment on above: Result Comment: Perf ormed at: WB Performed By: #### [id number] #### [facility] [address] [address] [address] Tali Dai Age Gdln ACOG Testing 30-65 [facility] Comment on above: Performed By: #### [id number] #### [facility] [address] [place] [address] Dr. Tali Dai DIAGNOSIS: Comment [facility] Comment on above: Result Comment: NEGA TIVE FOR INTRAEPITHELIAL LESION OR MALIGNANCY. Performed at: WB Performed By: #### [id number] #### [facility] [address] [address] [address] Tali Dai HPV Aptima Negative Normal [facility] Comment on above: Result Comment: This nucleic acid amplification test detects fourteen high-risk HPV types (16,18,31,33,35,39,45,51,52,56,58,59,66,68) without differentiation. Performed at: =G Performed By: #### [id number] #### [facility] [address] [address] [address] Tali Dai Methodology: Comment Normal [facility] Comment on above: Result Comment: This liquid based ThinPrep(R) pap test was screened with the use of an image guided system. Performed at: WB Performed By: #### [id number] #### [facility] [address] [place] [address] Dr. Tali Dai Note: Comment Normal [facility] Comment on above: Result Comment: The Pap smear is a screening test designed to aid in the detection of premalignant and malignant conditions of the uterine cervix. It is not a diagnostic procedure and should not be used as the sole means of detecting cervical cancer. Both false-positive and false-negative reports do occur. . Performed at: WB Performed By: #### [id number] #### [facility] [address] [address] [address] Tali Dai Performed by: Comment Normal [facility] Comment on above: Result Comment: Saud Munoz Employment Adjudicator (ASCP) Performed at: WB Performed By: #### [id number] #### [facility] [address] [address] [address] Tali Dai Specimen adequacy: Comment Normal [facility] Comment on above: Result Comment: Sati sfactory for evaluation. Endocervical and/or squamous metaplastic cells (endocervical component) are present. Performed at: WB Performed By: #### [id number] #### [facility] [address] [address] [address] Tali Dai Encounters Encounter Date Encounter Type Care Provider Facility Start: 06-14-2023 End: 06-14-2023 ambulatory WILI SPRAGUE Not Available Start: 04-18-2023 End: 04-18-2023 ambulatory WILI SPRAGUE Not Available Start: 07-25-2022 End: 07-25-[address] PRO VILLARREAL . Facility: Start: 07-15-2022 End: 07-15-2022 ambulatory KSENIA GUADARRAMA [facility] Start: 02-01-2022 End: 02-01-[address] DEBBY BURKS . Facility: Payers Date Payer Category Payer Medicaid [id number] 1980 Unknown [id number] [id number] 1980 Unknown [id number] [id number] [id number] 1980 Unknown [id number] [id number] 1980 Unknown [id number] 1961 Unknown [id number] Progress note 07-15-2022 Note Date & Type Note Facility 07-15-2022 Note Patient remains a no n-smoker she quit 5 years ago [facility] Progress note 07-15-2022 Note Date & Type Note Facility 07-15-2022 Note Continue statin and provided labs for routine lipid profile and liver function [facility] Progress note 07-15-2022 Note Date & Type Note Facility 07-15-2022 Note Overall patient is d oing very well no concerning symptoms today [facility] Progress note 07-15-2022 Note Date & Type Note Facility 07-15-2022 Note Hypertension is Well -controlled blood pressure 127/84 Continue all medications including lisinopril 10 mg daily, Toprol [facility] Progress note 07-15-2022 Note Date & Type Note Facility 07-15-2022 Note Coronary artery dise ase is Without any concerning symptoms Continue goal-directed medical therapy with aspirin, Lipitor, lisinopril and Toprol Prescription provided for annual labs including CBC, CMP and lipid profile [facility] Progress note 07-15-2022 Note Date & Type Note Facility 07-15-2022 Note [facility] PROGR ESS NOTE HPI: Jess Robertson is a 42 y.o. female here for Follow-up Patient is here today for 1.5 yr. Follow up. Overall states she is doing very well denies any chest pain, shortness of breath, orthopnea or any activity limiting symptoms. She does admit that she has gained weight over the past year. Review of Systems All other systems reviewed and are negative. Visit Vitals BP 127/84 (BP Location: Left arm, Patient Position: Sitting, BP Cuff Size: Adult) Pulse 63 Ht 1.524 m (5') Wt 92.1 kg (203 lb) SpO2 98% BMI 39.65 kg/m??? Smoking Status Former BSA 1.97 m??? Allergies Allergen Reactions Darvocet A500 [Propoxyphene N-Acetaminophen] Medications: Current Outpatient Medications on File Prior to Visit Medication Sig Dispense Refill aspirin 81 mg EC tablet Take 1 tablet (81 mg) by mouth once daily as directed. 30 tablet 0 atorvastatin (Lipitor) 80 mg tablet Take 1 tablet (80 mg) by mouth at bedtime. 30 tablet 0 etodolac (Lodine) 500 mg tablet Take 500 mg by mouth in the morning and at bedtime. lisinopril 10 mg tablet Take 1 tablet (10 mg) by mouth once daily as directed. 30 tablet 0 medroxyPROGESTERone (Depo-Provera) 150 mg/mL syringe injection syringe metoprolol succinate XL (Toprol-XL) 50 mg 24 hr tablet Take 1 tablet (50 mg) by mouth once daily as directed. Do not crush or chew. 30 tablet 0 omeprazole (PriLOSEC) [address] capsule lisinopril 5 mg tablet Take 5 mg by mouth in the morning. No current facility-administered medications on file prior to visit. Physical Exam: Constitutional: Appearance: Normal appearance. Without apparent distress HENT: Head: Normocephalic and atraumatic. Nose: Nose normal. Mouth/Throat: Mouth: Mucous membranes are moist. Eyes: Extraocular Movements: Extraocular movements intact. Conjunctiva/sclera: Conjunctivae normal. Neck: Vascular: No JVD. Cardiovascular: Rate and Rhythm: Normal rate and regular rhythm. Pulses: Dorsalis pedis pulses are 3 on the right side and 3on the left side. Posterior tibial pulses are 3 on the right side and 3 on the left side. Heart sounds: Normal heart sounds, S1 normal and S2 normal. Pulmonary: Effort: Pulmonary effort is normal. Breath sounds: Normal breath sounds. Abdominal: General: Bowel sounds are normal. Palpations: Abdomen is soft. Musculoskeletal: General: Normal range of motion. Cervical back: Normal range of motion. Right lower leg: No edema. Left lower leg: No edema. Skin: General: Skin is warm and dry. Capillary Refill: Capillary refill takes less than 2 seconds. Neurological: General: No focal deficit present. Mental Status: She is alert and oriented to person, place, and time. Psychiatric: Mood and Affect: Mood normal. Behavior: Behavior normal. Thought Content: Thought content normal. Judgment: Judgment normal. Labs: Last lab values have been reviewed CV Testin06/22/2016 Cath No echocardiogram results found for the past 12 months Assessment/Plan: Coronary arteriosclerosis Coronary artery disease is Without any concerning symptoms Continue goal-directed medical therapy with aspirin, Lipitor, lisinopril and Toprol Prescription provided for annual labs including CBC, CMP and lipid profile Essential hypertension Hypertension is Well-controlled blood pressure 127/84 Continue all medications including lisinopril 10 mg daily, Toprol H/O myocardial infarction, greater than 8 weeks Overall patient is doing very well no concerning symptoms today Hyperlipidemia Continue statin and provided labs for routine lipid profile and liver function Tobacco dependence syndrome Patient remains a non-smoker she quit 5 years ago Return to clinic in 1 year or earlier if needed [facility] Progress note 07-15-2022 Note Date & Type Note Facility 07-15-2022 Note Patient is here toda y for 1.5 yr. Follow up. Review of Systems All other systems reviewed and are negative. [facility] Summary Purpose Family History No Family History Records FoundNo Family History Records FoundNo Family History Records Found Advance Directives No Advanced Directives Records FoundNo Advanced Directives Records FoundNo Advanced Directives Records Found Additional Source Comments INFORMATION SOURCE (unrecogn ized section and content) DATE CREATED AUTHOR 07/16/2022 [facility] DATE CREATED AUTHOR AUTHOR'S ORGANIZ ATION 07/27/2022 [facility] DATE CREATED AUTHOR AUTHOR'S ORGANIZ ATION 06/15/2023 [facility] EPIC FOR RECORDS PERTAINING TO PATIENTS WHO ARE OR HAVE BEEN ENROLLED IN A CHEMICAL DEPENDENCY/SUBSTANCEABUSE PROGRAM, SOME INFORMATION MAY BE OMITTED. This clinical summary was aggregated from multiple sources. Caution should be exercised in using it in the provision of clinical care. This summary normalizes information from multiple sources, and as a consequence, information in this document may materially change the coding, format and clinical context of patient data. In addition, data may be omitted in some cases. CLINICAL DECISIONS SHOULD BE BASED ON THE PRIMARY CLINICAL RECORDS. [employer] provides no warranty or guarantee of the accuracy or completeness of information in this document.
[2023-08-22 11:46] LABS: Chol HDL Ratio 3.8; Cholesterol 182 mg/dL (<=200); HDL Cholesterol 48 mg/dL (40-60); Triglycerides 192 mg/dL (<=150); VLDL CHOLESTEROL 38.4 mg/dL
== END 2023-08-22 10:31 | disposition home or self-care (01) ==
LOC: LAB 10:31
PROVIDERS: PCP Family Medicine; Visit Provider Nurse Practitioner
DX: E78.00 Pure hypercholesterolemia, unspecified (principal); I10 Essential (primary) hypertension; I25.10 Atherosclerotic heart disease of native coronary artery without angina pectoris
CPT/HCPCS: 36415; 80061

== ENCOUNTER 2025-03-26 13:45 | Outpatient (OUT) | payer MEDICAID, SELFPAY ==
--- OUTSIDE RECORDS SUMMARY | 2023-11-28 10:10 | XMS_ITS ---
Author Organization [facility] Serv[facility] Address [address] [place] [address] Care Team Providers Care Refuge Manager Name Role Phone Melissa Becerra Primary Care Provider REASON FOR VISIT EXT Encounters Encounter Location Date Provider Diagnosis [address] [place] [address] 11/28/2023 Melissa Becerra Plan Of Treatment No Information Progress Notes * JUAN MANUEL ROBERTSONOB:1980 (44 yo F)Acc No.[id number]:11/28/2023 Patient:?RALF ROBERTSONHANY :?Melissa Becerra DDSDOB:1980???Age:43 Y ???Sex:FemaleDate:11/28/2023hone:[phone]:[address] [place], [place] [address] Subjective: * Chief Complaints: * E XT Billing Information: * Procedure Codes: * Electronic signature of Melissa Becerra DDS on 03/26/2025 at 01:49 PM ESTSign off status: Pending * Provider: Heron Becerra DDS Date: 0 11/28/2023 Generated for Printing/Faxing/eTransmitting on:?03/26/2025 01:49 PM EST
--- OUTSIDE RECORDS SUMMARY | 2024-03-06 08:30 | XMS_ITS ---
Author Organization [facility] Serv[facility] Address [address] [place] [address] Care Team Providers Care General Farmer Name Role Phone Melissa Becerra Primary Care Provider REASON FOR VISIT EXT Encounters Encounter Location Date Provider Diagnosis [address] [place] [address] 03/06/2024 Melissa Becerra Plan Of Treatment No Information Progress Notes * JUAN MANUEL ROBERTSONOB:1980 (44 yo F)Acc No.[id number]:03/06/2024 Patient:?RALF ROBERTSONHANY :?Melissa Becerra DDSDOB:1980???Age:43 Y ???Sex:FemaleDate:03/06/2024hone:[phone]:[address] [id number] Subjective: * Chief Complaints: * E XT * Electronic signature of Melissa Becerra DDS on 03/26/2025 at 01:49 PM ESTSign off status: Pending * Provider: Heron Becerra DDS Date: Generated for Printing/Faxing/eTransmitting on:?03/26/2025 01:49 PM EST
--- OUTSIDE RECORDS SUMMARY | 2024-11-18 08:00 | XMS_ITS ---
Author Organization [facility] Serv[facility] es Address [address] [place] [address] Care Team Providers Care Drawing In Machine Tender Helper Name Role Phone Melissa Becerra Primary Care Provider [phone] REASON FOR VISIT EXT Encounters Encounter Location Date Provider Diagnosis [address] [place] [address] 11/18/2024 Melissa Becerra Plan Of Treatment No Information Progress Notes * JUAN MANUEL ROBERTSONOB:1980 (44 yo F)Acc No.[id number]:11/18/2024 Patient:?RALF ROBERTSONHANY :?Melissa Becerra DDSDOB:1980???Age:44 Y ???Sex:FemaleDate:11/18/2024Phone:[phone]:[address] [place], [place] [address] Subjective: * Chief Complaints: * E XT * Electronic signature of Melissa Becerra DDS on 03/26/2025 at 01:49 PM ESTSign off status: Pending * Provider: Heron Becerra DDS Date: 0 11/18/2024 Generated for Printing/Faxing/eTransmitting on:?03/26/2025 01:49 PM EST
--- OUTSIDE RECORDS SUMMARY | 2025-03-26 13:49 | XMS_ITS | Patient Health Record ---
Author Organization [facility] Serv[facility] es Address [address] [place] [address] Care Team Providers Care Line Therapist Name Role Phone Munajimmie Melissa Primary Care Provider [phone] Dr. Lui Linares Unavailable [phone] Reason For Referral No Information Medications Medication SIG (Take, Route, Frequency, Duration) Notes Start Date End Date Status Ibuprofen 800 MG Tablet 1 tablet with fo od or milk as needed Orally Three times a day 05/22/2023Unknown Encounters Encounter Location Date Provider Diagnosis [facility] [address] [place] [address] 10/29/2024 Lui [facility] [place] [address]/ [facility] [place] [address]/nara BecerraEncounter for dental examination and cleaning with abnormal findings Z01.21 ; Other dental procedure status Z98.818 and Cracked tooth K03.81 Assessments Encounter Date Diagnosis (ICD Code) Assessment Notes Treatment Notes Treatment Clinical Notes Section Notes 10/29/2024 Encounter for dental examination and cleaning with abnormal findings (ICD-10 - Z01.21) 10/29/2024Other dental procedure status (ICD-10 - Z98.818)5Cracked tooth (ICD-10 - K03.81) Plan Of Treatment No Information Insurance Providers Payer Name Payer Address Payer Phone Subscriber Number Group Number Insured Name Patient Relationship to Insured Coverage Start Date Coverage End Date [employer] [place] DQ Terminate d [address] [place] [phone] [id number] MARCELO JESS Self - patient is the insured 3 [employer] [place] BCBS Termed [address] [place] [address] [phone], RALFABELKali - patient is the insured 3[employer] [place] COMMERCIALPO [address] [address] [place] [address] [phone], RALFSRIKANTHlai - patient is the [id number] 2024Dental [employer] [place] [address] [place] [id number] TERRIE ROBERTSONlai - patient is the [id number] 2024
--- OUTSIDE RECORDS SUMMARY | 2025-03-26 13:49 | XMS_ITS | Clinical Summary ---
Author Organization [facility] Address [address] [place] [address] Care Team Providers Care Ross Carrier Driver Name Role Phone Marco A Palmer MD Primary Care Provider [phone] Allergies No known active allergies Medications MedicationSigDispense QuantityRefillsLast FilledStart DateEnd DateStatus atorvastatin (Lipitor) 80 MG tablet Take 80 mg by mouth in the morning.01/31/2023ctive metoprolol succinate XL (Toprol-XL) 50 MG 24 hr tablet Take 50 mg by mouth in the morning.01/31/2023ctive Aspirin Low Dose 81 MG EC tablet Take 1 tablet by mouth in the morning.06/28/2022ctive lisinopril 2.5 MG tablet Take 1 tablet by mouth in the morning.Active etodolac (Lodine) 500 MG tablet Indications:Migraine without aura and without status migrainosus, not intractableTake 1 tablet (500 mg) by mouth in the morning and 1 tablet (500 mg) before bedtime. 60 tablet ctive omeprazole (PriLOSEC) [address] capsule Indications:Gastroesophageal reflux disease without esophagitisTake 1 capsule (40 mg) by mouth in the morning and 1 capsule (40 mg) before bedtime. 60 capsule ctive phentermine (Adipex-P) 37.5 MG tablet Indications:Morbid obesity (CMS-HCC)Take 1 tablet (37.5 mg) by mouth in the morning. Take before meals. 30 tablet 06/14/2023ctive Active Problems ProblemNoted DateDiagnosed DateGastroesophageal reflux xmiolbd8904/18/2023 Assessment & Plan (06/14/2023 8:55 AM EST): Symptoms controlled with omeprazole and continue. Seasonal allergic rhinitis due to iohutu6404/18/2023Renal igvonnr9904/18/2023 Assessment & Plan (04/18/2023 11:24 AM EST): Recently admitted with obstructing stones but passed. Told still stones but no pain. Check US. If stones present may need to see urology. Annual physical exam04/18/2023 Assessment & Plan (04/18/2023 11:24 AM EST): Due for labs. Never had mammogram or colon cancer screening and declines. Discussed proper diet andregular aerobic exercise. Need aerobic exercise 5-6 days a week for 30 minutes at a time. Smaller portions and limit total calories. Tetanus every 10 years. Advised not to smoke. Discussed daily Aspirin therapy. Morbid hbqxvmy9204/18/2023 Assessment & Plan (06/14/2023 8:55 AM EST): Patient doing well with adipex and lost 1 pound in first month but losing inches. Tolerating well with only mild dry mouth. Continue with dietary changes and less calories. Need to limit snacking andsmaller portions. Continue healthier choices. Need regular aerobic exercise 30 minutes at a time 5-6 days a week. Refill for second month. [place]ARRS reviewed. Continue meds as prescribed. If develop new or worsening symptoms contact office. Assessment & Plan (04/18/2023 11:24 AM EST): Patient overweight and difficult time losing weight. Discussed proper diet and regular aerobic exercise. Recommend Weight Watchers and need to limit calories and smaller portions. Need to increase activity and regular aerobic exercise several days a week for 30 minutes at a time. Interested in adipex and warned of potential cardiac side effects. Script written for first month and will need to recheck weight in 1 month. OARRS reviewed. Continue medications as prescribed. Migraine without aura and without status migrainosus, not kmedxaxucrp09/05/2023 Coronary termiahrmajcbapg21/05/2018 Overview (04/18/2023): Last Assessment & Plan: Coronary artery disease is Without any concerning symptoms Continue goal-directed medical therapy with aspirin, Lipitor, lisinopril and Toprol Prescription provided for annual labs including CBC, CMP and lipidprofile Mcucqmhtyjubtx39/05/2018 Overview (04/18/2023): Last Assessment & Plan: Continue statin and provided labs for routine lipid profile and liver function Essential bilntybuiedq90/05/2017 Overview (04/18/2023): Last Assessment & Plan: Hypertension is Well-controlled blood pressure 127/84 Continue all medications including lisinopril 10 mg daily, Toprol Assessment & Plan (06/14/2023 8:54 AM EST): BP controlled and monitor PRN. Family History RelationNameStatusCommentsSonAlive Social History Tobacco UseTypesPacks/DayYears UsedDateSmoking Tobacco: FormerCigarettes Smokeless Tobacco: Never Tobacco Cessation:Counseling Given: Not Answered Alcohol UseStandard Drinks/WeekCommentsNever0 (1 standard drink = 0.6 oz pure alcohol)PHQ-2AnswerDate RecordedPatient Health Questionnaire-2 Mpzqh661 CommentsUnknownSex and Gender InformationValueDate RecordedSex Assigned at BirthNot on fileLegal GcaGnwkab41/15/2023 7:07 PM EDTGender IdentityNot on fileSexual OrientationNot on file Last Filed Vital Signs Vital SignReadingTime TakenCommentsBlood Qbvjatpn346/72006/14/2023 8:17 AM EST Xsxsq957606/14/2023 8:17 AM PEHLfqvucvhivt36.6 ??C (97.8 ??F)06/14/2023 8:17 AM ESTRespiratory Rate--Oxygen Fcailccggy59%06/14/2023 8:17 AM ESTInhaled Oxygen Concentration--Dxfgze77.7 kg (211 lb)06/14/2023 8:17 AM JABAcogsl037.4 cm (5') 06/14/2023 8:17 AM ESTBody Mass Index41. 8:17 AM EST Plan of Treatment Not on file Insurance Care Teams Team MemberRelationshipSpecialtyStart DateEnd Date Marco A Palmer MD PCP - GeneralFamily Medicine06/14/23
--- OUTSIDE RECORDS SUMMARY | 2025-03-26 13:49 | XMS_ITS | Clinical Summary ---
Author Organization [facility] Address [address] [place] [address] Care Team Providers Care Machine Heel Seat Laster Name Role Phone Marco A Palmer MD Primary Care Provider [phone] Allergies Active AllergyReactionsCriticalityNoted DateCommentsPropoxyphene N-Acetaminophen 05/17/2022 Medications MedicationSigDispense QuantityRefillsLast FilledStart DateEnd DateStatus etodolac (Lodine) 500 mg tablet Take 500 mg by mouth in the morning and at bedtime.12/16/2021ctive medroxyPROGESTERone (Depo-Provera) 150 mg/mL syringe injection syringe 03/23/2022ctive omeprazole (PriLOSEC) [address] capsule 05/12/2022ctive phentermine (Adipex-P) 37.5 mg tablet Take 37.5 mg by mouth.06/14/2023ctive aspirin 81 mg EC tablet Indications:Coronary artery disease involving [place] coronary artery of [place] heart without angina pectoris,Essential hypertensionTake 1 tablet (81 mg) by mouth once daily as directed. 90 tablet ctive metoprolol succinate XL (Toprol-XL) 50 mg 24 hr tablet Indications:Coronary artery disease involving [place] coronary artery of [place] heart without angina pectoris,Essential hypertensionTake 1 tablet (50 mg) by mouth once daily as directed. Do not crush or chew. 90 tablet ctive acetaminophen-codeine (Tylenol w/ Codeine #3) 300-30 mg tablet Take 1 tablet by mouth every 6 (six) hours.09/20/2023ctive rosuvastatin (Crestor) 40 mg tablet Indications:Coronary artery disease involving [place] coronary artery of [place] heart without angina pectoris,Mixed hyperlipidemiaTake 1 tablet (40 mg) by mouth in the evening. 90 tablet /ctive ezetimibe (Zetia) 10 mg tablet Indications:Coronary artery disease involving [place] coronary artery of [place] heart without angina pectoris,Mixed hyperlipidemiaTake 1 tablet (10 mg) by mouth in the evening. 90 tablet /6Active lisinopril 20 mg tablet Indications:Primary hypertensionTake 1 tablet (20 mg) by mouth in the morning. 90 tablet /ctive Active Problems ProblemNoted DateDiagnosed DateAnnual physical exam/01/2024 Overview (08/22/2023): Last Assessment & Plan: Due for labs. Never had mammogram or colon cancer screening and declines. Discussed proper diet andregular aerobic exercise. Need aerobic exercise 5-6 days a week for 30 minutes at a time. Smaller portions and limit total calories. Tetanus every 10 years. Advised not to smoke. Discussed daily Aspirin therapy. Gastroesophageal reflux eokvzfx33 Overview (08/22/2023): Last Assessment & Plan: Symptoms controlled with omeprazole and continue. Migraine without aura and without status migrainosus, not waluwfnpkxi61/05/2023 08/22/2023Morbid fxlstlu61 Overview (08/22/2023): Last Assessment & Plan: Patient doing well with adipex and lost [...] develop new or worsening symptoms contact office. Renal Overview (08/22/2023): Last Assessment & Plan: Recently admitted with obstructing stones but passed. Told still stones but no pain. Check US. If stones present may need to see urology. Seasonal allergic rhinitis due to ghoggd77/01/2024H/O myocardial infarction, greater than 8 weeks07/15/2022 Assessment & Plan (07/15/2022 1:07 PM EST): Overall patient is doing very well no concerning symptoms today Coronary rcyyyaznvlqrfilt81/05/2018 Assessment & Plan (07/15/2022 1:07 PM EST): Coronary artery disease is Without any concerning symptoms Continue goal-directed medical therapy with aspirin, Lipitor, lisinopril and Toprol Prescription provided for annual labs including CBC, CMP and lipid profile Jdggwxubunhwpp29/05/2018 Assessment & Plan (07/15/2022 1:07 PM EST): Continue statin and provided labs for routine lipid profile and liver function Acute myocardial ozmokvoycw70/05/2017Essential abiocxzvcehp89/05/2017 Assessment & Plan (07/15/2022 1:07 PM EST): Hypertension is Well-controlled blood pressure 127/84 Continue all medications including lisinopril 10 mg daily, Toprol Kajzfrpd57/05/8667Jfhp89/05/2017Tobacco dependence mljzfanj49/05/2017 Assessment & Plan (07/15/2022 1:08 PM EST): Patient remains a non-smoker she quit 5 years ago Family History RelationNameStatusCommentsFatherAliveMotherAliveSisterDeceased Social History Tobacco UseTypesPacks/DayYears UsedDateSmoking Tobacco: FormerCigarettes Smokeless Tobacco: Never Tobacco Cessation:Counseling Given: Not Answered Alcohol UseStandard Drinks/WeekCommentsNot Currently0 (1 standard drink = 0.6 oz pure alcohol)UT Safety & EnvironmentAnswerDate RecordedFear of Current or Ex-PartnerNot on file07/06/2023Emotionally AbusedNot on file07/06/2023hysically AbusedNot on file07/06/2023Sexually AbusedNot on file07/06/2023hysically or Sexually AbusedNot on file07/06/2023CommentsUnknownSex and Gender InformationValueDate RecordedSex Assigned at UyudtEmmxtw45/17/2025 3:41 PM EDT Legal FcwVppyfn61/29/2022 11:53 PM EDTGender IpgpewnyUxixdo81/17/2025 3:41 PM EDTSexual OrientationHeterosexual or Yrtxlxnu17/17/2025 3:41 PM EDT Last Filed Vital Signs Vital SignReadingTime TakenCommentsBlood Gytmvmpg962/8504 3:59 PM EDT Cvmcc2607 3:59 PM EDTTemperature--Respiratory Rate--Oxygen Smhlqldbzv00% 08/19/2024 3:59 PM EDTInhaled Oxygen Concentration--Xwwyga98.2 kg (212 lb) 08/19/2024 3:59 PM KKGDdpapd548.4 cm (5')08/19/2024 3:59 PM EDTBody Mass Index 41.404 3:59 PM EDT Plan of Treatment DateTypeDepartmentCare Team (Latest Contact Info)Gnupfuazqxu61/13/2025 1:00 PM ESTOffice Visit [facility] [address] [place] [address] Mary Osorio, UPKEEP WORKER [address] [place] [address] Health MaintenanceDue DateLast DoneCommentsCT Qnjoxcexluug1978Colonoscopy 1978Colorectal Cancer Boguezixi1978FIT-DNA1978FIT1978 FOBT1978 5002Hkpcthdipokhd1978Depression Wxxxxiaxc22/27/1990Hepatitis B Vaccines (1 of 3 - 19+ 3-dose series)1997Pneumococcal Vaccine: Pediatrics (0 to 5 Years) and At-Risk Patients (6 to 64 Years) (1 of 2 - PCV)1997Pap Smear1999Adult Muhigsn5804/10/2000Cervical Cancer Njmxkkxtx53/27/2008 HPV/Azjuhx7804/10/20085426Tpsesgnra91/27/2018COVID-19 Vaccine (1 - season) 2025Influenza Vaccine (#1)2025Zoster Vaccines (1 of 2)2028HIB VaccinesAged OutNo longer eligible based on patient's age to complete this topic HPV VaccinesAged OutNo longer eligible based on patient's age to complete this topicIPV VaccinesAged OutNo longer eligible based on patient's age to complete this topicMeningococcal B VaccineAged OutNo longer eligible based on patient's age to complete this topicMeningococcal VaccineAged OutNo longer eligible based on patient's age to complete this topicRotavirus VaccinesAged OutNo longer eligible based on patient's age to complete this topic Insurance * Guarantor: Rabia Segovia AAccount TypeRelation to PatientDate of BirthPhone Billing AddressPersonal/HxyqtfPqoq1980 [address] [address] Care Teams Team MemberRelationshipSpecialtyStart DateEnd Date Marco A Palmer MD [address] [place] [address] PCP - General05/17/22
--- OUTSIDE RECORDS SUMMARY | 2025-03-26 13:57 | XMS_ITS | CCD ---
Author Organization [facility] Care Team Providers Care Heavy Media Operator Name Role Phone CHERELLE ., DR MAST Admitting Unavailable CELESTINE, DR WILI Shelby Primary [facility] Unavailable KHANH, DR KRISTINE Michaels Consulting Unavailable HAY ., DR MAST Attending Unavailable HAY ., DR MAST Consulting Unavailable RAMSEY ., BRIAN Consulting Unavailable AYANA KINNEY Consulting Unavailable KIMMIE ., DR GUARDADO Attending Unavailable KIMMIE ., DR GUARDADO Admitting Unavailable KIMMIE ., DR GUARDADO Consulting Unavailable CELESTINE, DR WILI Shelby Primary Care Unavailable CELESTINE, WILI Attending Unavailable NADHU, WILI Attending Unavailable CELESTINE, WILI Attending Unavailable CELESTINE, WILI Attending Unavailable BISMARK MCKAY Attending Unavailable ABRAM MOODY Attending Unavailable Allergies Allergy ClassificationReported Allergen(s)Allergy TypeDate of OnsetReaction(s) Facility (1 source)Darvocet-N 100Drug allergy (disorder)[id number] (1 source)PROPOXYPHENE N-ACETAMINOPHEN; Translations: [PROPOXYPHENE N-ACETAMINOPHEN]Propensity to adverse reactions to drug (disorder)05-17-2022 [facility] Repository Problems Active Problems Problem ClassificationProblemDateDocumented DateEpisodic/ChronicAbdominal pain (4 sources)Unspecified abdominal pain; Translations: [UNSPECIFIED ABDOMINAL PAIN]Onset: 41-28-9210XlirhlejPrdjktaydsqx of device; implant or graft (2 sources)Atherosclerosis of coronary artery bypass graft(s) without angina pectoris; Translations: [Atherosclerosis of coronary artery bypass graft(s) without angina pectoris]Onset: 03-98-0828YlszcppBagcneat atherosclerosis and other heart disease (5 sources)Old myocardial infarction; Translations: [Atherosclerotic heart disease of [place] coronary artery without angina pectoris]Onset: 07-26-2022 ChronicCoronary atherosclerosis and other heart disease (2 sources)Presence of coronary angioplasty implant and graft; Translations: [Presence of coronary angioplastyimplant and graft]Onset: 54-52-0590Dcnebcbo Disorders of lipid metabolism (2 sources)Mixed hyperlipidemia; Translations: [Mixed hyperlipidemia]Onset: 31-04-1780DbzjykmNmsocmtzxn disorders (1 source)Gastro-esophageal reflux disease without esophagitis; Translations: [GERD WITHOUT ESOPHAGITIS]Onset: 79-80-5242ElbdgfzKjduxropz hypertension (2 sources)Essential (primary) hypertension; Translations: [Essential (primary) hypertension]Onset: 71-27-1848VwsoprfXmmaj aftercare (1 source)terminal superintendent (current) use of aspirin; Translations: [HALFWAY CURRENT USE OF ASPIRIN]Onset: 94-01-5861CveuzvttGnjsg aftercare (1 source)Other terminal press operator (current) drug therapy; Translations: [OTH HALFWAY CURRENT DRUG THERAPY]Onset: 78-75-4361KyrbrdnnGpvgh lower respiratory disease (2 sources)Shortness of breath; Translations: [Shortness of breath]Onset: 77-71-0330WsgayeiqPegpxhhfm and history of mental health and substance abuse codes (1 source)Personal history of nicotine dependence; Translations: [PERSONAL HISTORY OF NICOTINE DEPEND]Onset: 87-53-0989Ijqdpnjk Past or Other Problems Problem ClassificationProblemDateDocumented DateEpisodic/ChronicImmunizations and screening for infectious disease (1 source)Encounter for screening for human papillomavirus (HPV); Translations: [ENC SCREENING HUMAN PAPILLOMAVIRUS]Onset: 19-45-4622GlylxodbBiege screening for suspected conditions (not mental disorders or infectious disease) (4 sources)Encounter for screening for malignant neoplasm of cervix; Translations: [ENC SCREENING MALIG NEOPLASM CERV]Onset: 89-20-3499Uceunagh Results Test NameValueInterpretationReference RangeFacilityOffice Visiton 08-19-2024 Follow-up [id number] Jess Robertson 1980 F Date Provider Department Center 08[facility]20[facility] Family Status - Relation Status Age at Mother Alive Father Alive Sister Level of Service:68761 SD OFFICE/OUTPATIENT ESTABLISHED MOD MDM 30 MINNormal [facility] 23-99-7158Ilhkka-up visit [id number] Jess Robertson Heron 1980 F Date Provider Department Center 08/22/2023 ABRAM LEON [facility] No family history on file Level of Service:23465 SD OFFICE/OUTPATIENT ESTABLISHED MOD MDM 30 MIN Reason for Visit and Comments: Coronary Artery Disease [187] Hyperlipidemia [182]NormalMartins Ferry HospitalCBC AUTO DIFFon 42-21-9657YRFR #0.1 103/ulNormal0.0-0.1[facility] CenterComment on above: Performed By: #### CBC #### [facility] [address] [address] [address] Tali DaiBasophils/100 WBC (Bld)0.6 %Normal0.2-2.0[facility] Comment on above:Performed By: #### CBC #### [facility] [address] [address] [address] Tali [place] #0.2 103/ulNormal0.0-0.7The [facility] HospitalComment on above: Performed By: #### CBC #### [facility] [address] [address] [address] Tali Aguilaosinophils/100 WBC (Bld)1.9 %Normal0.9-7.0[facility] Comment on above:Performed By: #### CBC #### [facility] [address] [address] [address] Tali Aguilarythrocyte distribution width (RBC) [Ratio]13.1 %Ukuvqf52.0-15.0 [facility] CenterComment on above:Performed By: #### CBC #### [facility] [address] [address] [address] Tali DaiHematocrit (Bld) [Volume fraction]39.9 %Xllddz70.0-48.0The [facility] HospitalComment on above:Performed By: #### CBC #### [facility] [address] [place] [address] Dr. Tali DaiHemoglobin (Bld) [Mass/Vol]13.6 g/qMHjwzhj14.0-16.0The [facility] HospitalComment on above:Performed By: #### CBC #### [facility] [address] [place] [address] Dr. Tali Felix #0.03 10e3/ulNormal0.00-0.03The [facility] HospitalComment on above:Performed By: #### CBC #### [facility] [address] [place] [address] Dr. Tali Felix %0.3 %Normal0.0-0.5The [facility] HospitalComment on above: Performed By: #### CBC #### [facility] [address] [place] [address] Dr. Tali Cruz #2.9 103/ulNormal1.2-3.8The [facility] HospitalComment on above:Performed By: #### CBC #### [facility] [address] [place] [address] Dr. Tali Pelletierhocytes/100 WBC (Bld)27.0 %Nxvcjv51.5-60.0The [facility] HospitalComment on above:Performed By: #### CBC #### [facility] [address] [place] [address] Dr. Tali LaoUAL DIFF REQNONormalThe [facility] HospitalComment on above: Performed By: #### CBC #### [facility] [address] [place] [address] Dr. Tali Soriano (RBC) [Entitic mass]32.4 usQlmsmt20.7-34.0The [facility] HospitalComment on above:Performed By: #### CBC #### [facility] [address] [place] [address] Dr. Tali Gerber (RBC) [Mass/Vol]34.1 g/gOPtsscm65.9-35.2The [facility] HospitalComment on above:Performed By: #### CBC #### [facility] [address] [place] [address] Dr. Tali Llanos (RBC) [Entitic vol]95.0 iIRbbklk19.0-99.0The [facility] HospitalComment on above:Performed By: #### CBC #### [facility] [address] [place] [address] Dr. Tali Williamson #0.7 103/ulNormal0.3-0.8The [facility] HospitalComment on above:Performed By: #### CBC #### [facility] [address] [place] [address] Dr. Tali Fitzpatrickocytes/100 WBC (Bld)6.3 %Normal1.7-12.0[facility] Comment on above:Performed By: #### CBC #### [facility] [address] [place] [address] Dr. Tali Menjivar #6.8 103/ulCritically high1.4-6.5The [facility] Comment on above:Performed By: #### CBC #### [facility] [address] [place] [address] Dr. Tali Armentautrophils/100 WBC (Bld)63.9 %Nkznsz35.0-75.0The [facility] HospitalComment on above:Performed By: #### CBC #### [facility] [address] [place] [address] Dr. Tali Escobar mean volume (Bld) [Entitic vol]9.2 fLCritically low 9.5-13.5The [facility] HospitalComment on above:Performed By: #### CBC #### [facility] [address] [place] [address] Dr. Tali DaiPLT375 103/zaYgyfph861-713Orl [facility] HospitalComment on above: Performed By: #### CBC #### [facility] [address] [place] [address] Dr. Tali DaiRBC4.20 106/ulNormal4.20-5.40The [facility] HospitalComment on above:Performed By: #### CBC #### [facility] [address] [place] [address] Dr. Tali DaiWBC10.6 103/ulNormal4.0-11.0The [facility] HospitalComment on above:Performed By: #### CBC #### [facility] [address] [place] [address] Dr. Tali DaiCT ABD/PELVIS WO CONon 33-24-2901EB ABD/PELVIS WO CONEXAMINATION: CT ABD/PELVIS WO CON HISTORY: Left sided [...] Electronically authenticated by: KRISTINE CASSIDY Date: 2022-07-25 07:51[facility] URINE PROFILEon 97-56-7155Iyjxmtlwg Ql (U)NegativeNormal NEGATIVEThe [facility] HospitalComment on above:Performed By: #### ERUR #### [facility] [address] [address] [address] Tali DaiClarity (U)CLEARNormalCLEARDiley Ridge Medical CenterComment on above: Performed By: #### ERUR #### [facility] [address] [place] [address] Dr. Tali Luther (U)LT. YELLOWNormalYELLOWDiley Ridge Medical CenterComment on above:Performed By: #### ERUR #### [facility] [address] [address] [address] Tali Stafford micrscopic examination will be performed if indicated. NormalDiley Ridge Medical CenterComment on above:Performed By: #### ERUR #### [facility] [address] [place] [address] Dr. Tali DaiGlucose Ql (U)NegativeNormalNEGATIVEDiley Ridge Medical CenterComment on above:Performed By: #### ERUR #### [facility] [address] [place] [address] Dr. Tali DaiHemoglobin Ql (U)NegativeNormalNEGATIVEMemorial Hospital on above:Performed By: #### ERUR #### [facility] [address] [place] [address] Dr. Tali DaiKetones Ql (U)NegativeNormalNEGATIVEDiley Ridge Medical CenterComment on above:Performed By: #### ERUR #### [facility] [address] [place] [address] Dr. Tali DaiLEUKOCYTESNegativeNormalNEGATIVEDiley Ridge Medical CenterComment on above:Performed By: #### ERUR #### [facility] [address] [address] [address] Tali DaiNitrite Ql (U)NegativeNormalNEGATIVEDiley Ridge Medical CenterComment on above:Performed By: #### ERUR #### [facility] [address] [place] [address] Dr. Tali DaipH (U)6.0 [pH]Normal5-9[facility] CenterComment on above: Performed By: #### ERUR #### [facility] [address] [place] [address] Dr. Tali DaiSPEC GRAVITY1.639Mxeyef4.005-<=1.025The [facility] HospitalComment on above:Performed By: #### ERUR #### [facility] [address] [place] [address] Dr. Tali Mcneal PROTEINNegativeNormalNEGATIVE/ TRACEThe [facility] Comment on above:Performed By: #### ERUR #### [facility] [address] [place] [address] Dr. Tali Millard MICRO INDNOT INDICATEDNormalThe [facility] HospitalComment on above:Performed By: #### ERUR #### [facility] [address] [place] [address] Dr. Tali Colebilinogen Qn (U)0.2 {Jefe'U}/dLNormal0.2 - 1.0The [facility] HospitalComment on above:Performed By: #### ERUR #### [facility] [address] [place] [address] Dr. Tali DaiLIPASEon 62-41-8896Wipjbe [Catalytic activity/Vol]254.0 U/LNormal 73.0-393.0The [facility] HospitalComment on above:Performed By: #### LIPA, HSTROPN #### [facility] [address] [place] [address] Dr. Tali DaiPROF 14(COMP METB)on 00-18-2294Rvjpegn [Mass/Vol]3.7 g/dLNormal 3.4-5.0The [facility] HospitalComment on above:Performed By: #### CMP #### [facility] [address] [place] [address] Dr. Tali DaiAlbumin/Globulin [Mass ratio]1.1 {ratio}NormalThe [facility] HospitalComment on above:Performed By: #### CMP #### [facility] [address] [place] [address] Dr. Tali DaiALP [Catalytic activity/Vol]66 U/OWeyxsd45-186Zcj [facility] HospitalComment on above:Performed By: #### CMP #### [facility] [address] [address] [address] Tali SarkarT [Catalytic activity/Vol]30 U/TGxihzh27-21Sjd [facility] HospitalComment on above:Performed By: #### CMP #### [facility] [address] [address] [address] Tali Sheltonon gap [Moles/Vol]13.5 mmol/LNormalThe [facility] Comment on above:Performed By: #### CMP #### [facility] [address] [address] [address] Tali DaiAST [Catalytic activity/Vol]19 U/YOzgrju16-29Rdw [facility] HospitalComment on above:Performed By: #### CMP #### [facility] [address] [address] [address] Tali DaiBilirubin [Mass/Vol]0.4 mg/dLNormal0.2-1.0The [facility] Comment on above:Performed By: #### CMP #### [facility] [address] [address] [address] Tali DaiCalcium [Mass/Vol]9.1 mg/dLNormal8.5-10.1[facility] Comment on above:Performed By: #### CMP #### [facility] [address] [address] [address] Tali DaiChloride [Moles/Vol]107 mmol/SWlsdaf72-930Nxl [facility] Comment on above:Performed By: #### CMP #### [facility] [address] [address] [address] Tali DaiCO2 [Moles/Vol]25.3 mmol/QTrhjou60.0-32.0The [facility] Comment on above:Performed By: #### CMP #### [facility] [address] [address] [address] Tali DaiCreatinine [Mass/Vol]0.95 mg/dLNormal0.55-1.02The [place] HospitalComment on above:Performed By: #### CMP #### [facility] [address] [address] [address] Tali AguilaGFR-AF LITHUANIAN>60Normal>=60The [facility] HospitalComment on above:Performed By: #### CMP #### [facility] [address] [address] [address] Tali AguilaGFR-NON AF LITHUANIAN>60Normal>=60The [facility] HospitalComment on above:Performed By: #### CMP #### [facility] [address] [address] [address] Tali DaiGlobulin (S) [Mass/Vol]3.4 g/dLNormalThe [facility] HospitalComment on above:Performed By: #### CMP #### [facility] [address] [address] [address] Tali DaiGlucose [Mass/Vol]96 mg/eSHjonkk98-841LybDiley Ridge Medical Center Comment on above:Performed By: #### CMP #### [facility] [address] [address] [address] Tali DaiPotassium [Moles/Vol]3.8 mmol/LNormal3.5-5.1[facility] Comment on above:Performed By: #### CMP #### [facility] [address] [address] [address] Tali DaiProtein [Mass/Vol]7.1 g/dLNormal6.4-8.2The [facility] Comment on above:Performed By: #### CMP #### [facility] [address] [address] [address] Tali DaiSodium [Moles/Vol]142 mmol/HZeefoy419-645Kas [facility] Comment on above:Performed By: #### CMP #### [facility] [address] [address] [address] Tali DaiUrea nitrogen [Mass/Vol]11.0 mg/dLNormal7.0-18.0The [facility] HospitalComment on above:Performed By: #### CMP #### [facility] [address] [address] [address] Tali DaiUrea nitrogen/Creatinine [Mass ratio]11.6 mg/mgNoUniversity Hospitals Cleveland Medical CenterComment on above:Performed By: #### CMP #### [facility] [address] [address] [address] Tali BrowningOPONIHolli, HIGH SENSITIVITYon 64-28-3208SFBEYQ4.0 pg/mLNormal 4.0-51.3The [facility] HospitalCompromedica mon[facility] on above:Result Comment: CUT-OFF POINTS HAVE BEEN ESTABLISHED BASED ON THE FOURTH UNIVERSAL DEFINITIONS OF MYOCARDIAL INFARCTION. THE UPPER REFERENCE LIMIT (URL) OF TROPONIN, DEFINED THE 99TH PERCENTILE OF cTnI DISTRIBUTION IN A REFERENCE POPULATION, HAS BEEN CONFIRMED THE DECISION THRESHOLD FOR VA DIAGNOSIS.Performed By: #### LIPA, HSTROPN #### [facility] [address] [place] [address] Dr. Tali DaiXR ABD FLAT UP_PA Lawanda 22-06-1249LH ABD FLAT UP_PA CHEXAM: XR ABD FLAT UP_PA CH HISTORY: Left [...] Electronically authenticated by: AYANA KINNEY Date: 2022-07-25 07:23[facility] ACOG PANEL 2: 30 to 65on 02-08-2022..NormalThe [facility] on above:Result Comment: Performed at: WBPerformed By: #### [id number] #### [facility] [address] [place] [address] Dr. Tali Cee Gdln ACOG Atdkhmc61-68QspbqvFcqUniversity Hospitals Cleveland Medical CenterComment on above:Performed By: #### [id number] #### [facility] [address] [place] [address] Dr. Tali DaiDIAGNOSIS:CommentLake County Memorial Hospital - West on above: Result Comment: NEGATIVE FOR INTRAEPITHELIAL LESION OR MALIGNANCY. Performed at: WBPerformed By: #### [id number] #### [facility] [address] [place] [address] Dr. Tali DaiHPV AptimaNegativeNormalNegativeThe [facility] HospitalCompromedica [facility] on above:Result Comment: This nucleic acid amplification test detects fourteen high-risk HPV types (16,18,31,33,35,39,45,51,52,56,58,59,66,68) without differentiation. Performed at: =GPerformed By: #### [id number] #### [address] [address] [address] Tali DaiMethodology:CommentLake County Memorial Hospital - West on above: Result Comment: This liquid based ThinPrep(R) pap test was screened with the use of an image guided system. Performed at: WBPerformed By: #### [id number] #### [address] [address] [address] Tali DaiNote:CommentLake County Memorial Hospital - West on above:Result Comment: The Pap smear is a screening test designed to aid in the detection of premalignant and malignant conditions of the uterine cervix. It is not a diagnostic procedure and should not be used as the sole means of detecting cervical cancer. Both false-positive and false-negative reports do occur. . Performed at: WBPerformed By: #### [id number] #### [facility] [address] [place] [address] Dr. Tali DaiPerformed by:CommentLake County Memorial Hospital - West on above: Result Comment: Carina Munoz, Schedule Checker (ASCP) Performed at: WBPerformed By: #### [id number] #### [address] [place], [place] [address] Dr. Tali DaiSpecimen adequacy:CommentNoUniversity Hospitals Cleveland Medical CenterComment on above:Result Comment: Satisfactory for evaluation. Endocervical and/or squamous metaplastic cells (endocervical component) are present. Performed at: WBPerformed By: #### [id number] #### [facility] [id number] Tali Dai Encounters Encounter DateEncounter TypeCare ProviderFacilityStart: 08-19-2024 End: 33-80-3843ysosodpiaqFNDZVJ [facility] Start: 08-22-2023 End: 07-31-8832uyobutcydtLNBOVYH [facility]23 End: 80-79-9353rqkwbqrypeOEKD NADERERNot AvailableStart: 06-14-2023 End: 92-95-0415trpilvbpdrMTVE NADERERNot AvailableStart: 04-18-2023 End: 07-46-9079yugxkccnshGIJR NADERERNot AvailableStart: 04-18-2023 End: 66-61-4569gtxislkrecBPIY NADERERNot AvailableStart: 07-25-2022 End: 67-57-0563qmnyjxareaCS PRO CHERELLE .Facility:F7Avlcq: 02-01-2022 End: 57-58-0856ofdryqjmpvIC DEBBY BURKS .Facility: Payers DatePayer CategoryPayerPolicy [id number] 1980Unknown [id number] [id number] 2...[id number] [id number] [id number] Progress note 08-19-2024 Note Date & LaibOltdFexvyuzd84-52-9215 NoteUT [facility]iology - [facility] Subjective Jess Robertson is a 44 y.o. year old female patient being seen for 1 year follow up. Patient states she is feeling fine. Denies chest pain, abnormal bleeding/bruising, palpitations, or leg edema. Patient has no cardiac complaints at this time. Patient Active Problem List Diagnosis ??? Acute myocardial infarction (CMS/HCC) ??? Coronary arteriosclerosis ??? Essential hypertension ??? Hyperlipidemia ??? Migraine ??? Rash ??? Tobacco dependence syndrome ??? H/O myocardial infarction, greater than 8 weeks ??? Annual physical exam ??? Gastroesophageal reflux disease ??? Migraine without aura and without status migrainosus, not intractable ??? Morbid obesity (CMS/HCC) ??? Renal calculi ??? Seasonal allergic rhinitis due to pollen No family history on file. Social History Tobacco Use ??? Smoking status: Former Types: Cigarettes ??? Smokeless tobacco: Never Substance Use Topics ??? Alcohol use: Not Currently ??? Drug use: Never HPI Jess is seen in follow-up. This is the first time I am meeting her. She has a history of coronary artery disease. In June 2016 she presented with anterior [address] elevation myocardial infarction complicated by ventricular fibrillation cardiac arrest. She was treated with emergency coronary intervention and drug-eluting stenting to the LAD. There was no significant disease in the left main, circumflex and RCA. Additional medical history includes hyperlipidemia, hypertension and former smoking. Today she denies chest pain. She has shortness of breath on exertion NYHA class II symptoms. No lower extremity edema. No palpitations. She has acceptable exercise tolerance. She has noticed that her blood pressure has been creeping up and she thinks that she is getting used to the lisinopril. Review of Systems Constitutional: Negative. Cardiovascular: Positive for dyspnea on exertion. Negative for chest pain, irregular heartbeat, leg swelling, orthopnea, palpitations and syncope. Respiratory: Negative for cough and shortness of breath. Musculoskeletal: Negative for arthritis, falls and neck pain. Gastrointestinal: Negative for diarrhea and dysphagia. Neurological: Negative for light-headedness and loss of balance. Objective Visit Vitals BP 130/85 (BP Location: Left arm, Patient Position: Sitting) Pulse 78 Ht 1.524 m (5') Wt 96.2 kg (212 lb) SpO2 97% BMI 41.40 kg/m??? Smoking Status Former BSA 2.02 m??? Physical Exam Constitutional: Appearance: She is well-developed. She is obese. She is not ill-appearing. HENT: Head: Normocephalic and atraumatic. Nose: Nose normal. Eyes: General: No scleral icterus. Pupils: Pupils are equal, round, and reactive to light. Neck: Thyroid: No thyromegaly. Vascular: No JVD. Cardiovascular: Rate and Rhythm: Normal rate and regular rhythm. Pulses: Radial pulses are 2+ on the right side and 2+ on the left side. Heart sounds: Normal heart sounds. No murmur heard. No friction rub. No gallop. Pulmonary: Effort: Pulmonary effort is normal. No respiratory distress. Breath sounds: Normal breath sounds. No wheezing or rales. Chest: Chest wall: No tenderness. Abdominal: General: Bowel sounds are normal. There is no distension. Palpations: Abdomen is soft. Tenderness: There is no abdominal tenderness. Musculoskeletal: General: No swelling. Cervical back: Neck supple. Skin: General: Skin is warm and dry. Neurological: General: No focal deficit present. Mental Status: She is alert and oriented to person, place, and time. Psychiatric: Mood and Affect: Mood normal. Behavior: Behavior is cooperative. Judgment: Judgment normal. Allergies Allergies Allergen Reactions ??? Darvocet A500 [Propoxyphene N-Acetaminophen] Medications Current Outpatient Medications: ??? aspirin 81 mg EC tablet, Take 1 tablet (81 mg) by mouth once daily as directed., Disp: 90 tablet, Rfl: 3 ??? etodolac (Lodine) 500 mg tablet, Take 500 mg by mouth in the morning and at bedtime., Disp: , Rfl: ??? medroxyPROGESTERone (Depo-Provera) 150 mg/mL syringe injection syringe, , Disp: , Rfl: ??? metoprolol succinate XL (Toprol-XL) 50 mg 24 hr tablet, Take 1 tablet (50 mg) by mouth once daily as directed. Do not crush or chew., Disp: 90 tablet, Rfl: 3 ??? omeprazole (PriLOSEC) [address] capsule, , Disp: , Rfl: ??? acetaminophen-codeine (Tylenol w/ Codeine #3) 300-30 mg tablet, Take 1 tablet by mouth every 6 (six) hours., Disp: , Rfl: ??? ezetimibe (Zetia) 10 mg tablet, Take 1 tablet (10 mg) by mouth in the evening., Disp: 90 tablet, Rfl: 3 ??? lisinopril 20 mg tablet, Take 1 tablet (20 mg) by mouth in the morning., Disp: 90 tablet, Rfl: 3 ??? phentermine (Adipex-P) 37.5 mg tablet, Take 37.5 mg by mouth., Disp: , Rfl: ??? rosuvastatin (Crestor) 40 mg tablet, Take 1 tablet (40 mg) by mouth in the evening., Disp: 90 tablet, Rfl: 3 (more content not included)...[facility] Progress note 08-22-2023 Note Date & [id number] NoteCardiovascular Medicine [facility] SUBJECTIVE Chief Complaint Patient presents with Coronary Artery Disease Hyperlipidemia Jess Robertson is a 43 y.o. female here for follow-up. HPI PMHx: CAD with thrombotic occlusion to LAD s/p stenting 2017, HLD, HTN, former smoker She has been doing well since last seen, denies any changes. She admits she is not very active as far as exercise, very busy at home with her 11 year old and also working 12hr shifts on the weekend. She tries to eat healthy. Denies c/o CP, dyspnea, orthopnea, PND, LE edema, dizziness/LH, palpitations, syncope. Patient Active Problem List Diagnosis Acute myocardial infarction (CMS/HCC) Coronary arteriosclerosis Essential hypertension Hyperlipidemia Migraine Rash Tobacco dependence syndrome H/O myocardial infarction, greater than 8 weeks Annual physical exam Gastroesophageal reflux disease Migraine without aura and without status migrainosus, not intractable Morbid obesity (CMS/HCC) Renal calculi Seasonal allergic rhinitis due to pollen No past medical history on file. No family history on file. Social History Tobacco Use Smoking status: Former Types: Cigarettes Smokeless tobacco: Never Substance Use Topics Alcohol use: Not Currently Drug use: Never Allergies Allergen Reactions Darvocet A500 [Propoxyphene N-Acetaminophen] Review of Systems Constitutional: Negative for chills, decreased appetite, fever, malaise/fatigue and weight gain. Cardiovascular: Negative for chest pain, dyspnea on exertion, irregular heartbeat, leg swelling, near-syncope, orthopnea, palpitations, paroxysmal nocturnal dyspnea and syncope. Hematologic/Lymphatic: Negative for bleeding problem. Does not bruise/bleed easily. OBJECTIVE Visit Vitals BP 122/80 (BP Location: Left arm, Patient Position: Sitting) Pulse 88 Ht 1.524 m (5') Wt 95.7 kg (211 lb) SpO2 98% BMI 41.21 kg/m??? Smoking Status Former BSA 2.01 m??? Medications: Current Outpatient Medications: etodolac (Lodine) 500 mg tablet, Take 500 mg by mouth in the morning and at bedtime., Disp: , Rfl: medroxyPROGESTERone (Depo-Provera) 150 mg/mL syringe injection syringe, , Disp: , Rfl: omeprazole (PriLOSEC) [address] capsule, , Disp: , Rfl: phentermine (Adipex-P) 37.5 mg tablet, Take 37.5 mg by mouth., Disp: , Rfl: aspirin 81 mg EC tablet, Take 1 tablet (81 mg) by mouth once daily as directed., Disp: 90 tablet, Rfl: 3 atorvastatin (Lipitor) 80 mg tablet, Take 1 tablet (80 mg) by mouth at bedtime., Disp: 90 tablet, Rfl: 3 ezetimibe (Zetia) 10 mg tablet, Take 1 tablet (10 mg) by mouth in the morning., Disp: 30 tablet, Rfl: 11 lisinopril 10 mg tablet, Take 1 tablet (10 mg) by mouth once daily as directed. as directed, Disp: 90 tablet, Rfl: 3 metoprolol succinate XL (Toprol-XL) 50 mg 24 hr tablet, Take 1 tablet (50 mg) by mouth once daily as directed. Do not crush or chew., Disp: 90 tablet, Rfl: 3 Physical Exam Vitals reviewed. Constitutional: Appearance: Normal appearance. She is normal weight. HENT: Head: Normocephalic and atraumatic. Right Ear: External ear normal. Left Ear: External ear normal. Eyes: Extraocular Movements: Extraocular movements intact. Conjunctiva/sclera: Conjunctivae normal. Pupils: Pupils are equal, round, and reactive to light. Neck: Vascular: No carotid bruit. Cardiovascular: Rate and Rhythm: Normal rate and regular rhythm. Pulses: Normal pulses. Heart sounds: Normal heart sounds. Pulmonary: Effort: Pulmonary effort is normal. Breath sounds: Normal breath sounds. Abdominal: General: Bowel sounds are normal. Palpations: Abdomen is soft. Musculoskeletal: Cervical back: Neck supple. Right lower leg: No edema. Left lower leg: No edema. Skin: General: Skin is warm and dry. Neurological: General: No focal deficit present. Mental Status: She is alert and oriented to person, place, and time. Psychiatric: Mood and Affect: Mood normal. Behavior: Behavior normal. Thought Content: Thought content normal. Judgment: Judgment normal. Labs: Legacy Encounter on 03/11/2019 Component Date Value Ref Range Status Ventricular Rate 03/11/2019 69 BPM Final Atrial Rate 03/11/2019 69 BPM Final SD Interval 03/11/2019 132 ms Final QRS DURATION 03/11/2019 102 ms Final QT Interval 03/11/2019 396 ms Final QTC CALCULATION(BEZET) 03/11/2019 424 ms Final P Lutsen 03/11/2019 63 degrees Final R-Lutsen 03/11/2019 65 degrees Final T Wave Lutsen 03/11/2019 17 degrees Final Diagnosis 03/11/2019 Final Value:Normal sinus rhythm with sinus arrhythmia Low voltage QRS T wave abnormality, consider anterior ischemia Abnormal ECG When compared with ECG of 11-MAR-2019 14:05, (unconfirmed) No significant change was found Confirmed by STRESS, ([id number]), dictionary editor Kya Martinez ([id number]) on 03/11/2019 1:51:57 PM No results found for: EXTCMP , BMPR1A , CBCDIF , BNP , LASAP , RED L (more content not included)...[facility] Progress note 08-22-2023 Note Date & [id number] NotePatient here for 1 year follow up CAD, hypertension, and hyperlipidemia. Had lipid panel drawn this morning. Denies chest pain, SOB, palpitations, and lightheadedness. Has been doing very well from cardiac standpoint. Review of Systems All other systems reviewed and are negative.[facility] Summary Purpose Family History No Family History Records FoundNo Family History Records FoundNo Family History Records FoundNo Family History Records Found Advance Directives No Advanced Directives Records FoundNo Advanced Directives Records FoundNo Advanced Directives Records FoundNo Advanced Directives Records Found Additional Source Comments INFORMATION SOURCE (unrecogn ized section and content) DATE CREATED AUTHOR 07/27/2022 [facility] DATE CREATED AUTHOR AUTHOR'S ORGANIZ ATION 06/15/2023 [facility] EPIC DATE CREATED AUTHOR AUTHOR'S ORGANIZ ATION 12/27/2023 [facility] EPIC DATE CREATED AUTHOR AUTHOR'S ORGANIZ ATION 08/20/2024 [facility] FOR RECORDS PERTAINING TO PATIENTS WHO ARE [...] BE BASED ON THE PRIMARY CLINICAL RECORDS. [facility] [employer] [facility]. provides no warranty or guarantee of the accuracy or completeness of information in this document.
--- NOTE | 2025-03-26 14:00 | CA_ITS ---
Patient Name: JESS ROBERTSON MR#: [id number] : 1980 Exam Date: 03/26/2025 Ordering Doctor: DR BISMARK PHAM M.D. ECHOCARDIOGRAM REPORT PROCEDURE: CA ECHO DOPPLER COMPLETE INDICATIONS: Shortness of breath, h/o NV, hypertension COMPARISON: None. DESCRIPTION: COMPLETE ECHOCARDIOGRAM Real-time transthoracic echocardiography with 2D, M-mode, spectral and color flow Doppler performed. QUALITY: Technically difficult due to poor acoustics. LEFT VENTRICLE: Normal chamber size. Normal left ventricular wall thickness. Hyperdynamic systolic function. LV EF: Hyperdynamic left ventricular ejection fraction, (75%). DIASTOLIC: Normal diastolic function. ATRIAL SEPTUM: LEFT ATRIUM: Normal chamber size. RIGHT ATRIUM: Normal chamber size. RIGHT VENTRICLE: Normal chamber size. Normal right ventricular systolic function. TRICUSPID VALVE: Normal mobility and thickness. No stenosis with trivial regurgitation. Unable to assess right-sided pressure due to the lack of measurable tricuspid regurgitation. MITRAL VALVE: Normal mobility and thickness. No evidence of mitral valve stenosis. There is no mitral annular calcification. Trivial mitral regurgitation. AORTIC VALVE: Normal trileaflet appearance. No visible sclerosis. Normal leaflet mobility. No evidence of aortic valve stenosis. No aortic regurgitation. AORTIC ROOT: Normal diameter and appearance, measuring 2.9 cm. Ascending aorta is normal in size, measuring 2.5 cm. PULMONIC VALVE: Normal thickness and mobility. No stenosis. No regurgitation. PERICARDIUM: No evidence of pericardial effusion. IVC: Not well visualized. PLEURA: CONCLUSION: 1. The left ventricle is normal in size and exhibits hyperdynamic systolic function. Estimated LVEF is 75%. 2. Normal right ventricular size and systolic function. 3. Normal diastolic function. 4. No significant valvular dysfunction. 5. Unable to assess right-sided pressures due to lack of measurable tricuspid regurgitation. Adult Echocardiography Procedure Report Left Ventricle LVEDD (3.7 - 5.6 cm): 3.51 cm LVESD (2.2 - 4.0 cm): 2.68 cm LVIVS thickness (0.6 - 1.2 cm): 0.87 cm LVPW thickness (0.5 - 1.0 cm): 0.96 cm e': 0.14 m/s E - e': 6.01 LVOT Max Gradient: 4.60 mm[Hg] LVOT Area (cm2): 1.07 m/s Peak Velocity (LVOT): 1.07 m/s Mean Velocity (LVOT): 0.70 m/s LVOT Diameter 2.32 cm Left Atrium LA Volume Index (2D A2C): 20.73 ml/m2 Left Atrium Systolic Dimension: 3.00 cm Mitral Valve MV E to A Ratio: 1.26 Mitral Valve A-Wave Peak Velocity: 0.68 m/s Mitral Valve E-Wave Peak Velocity: 0.85 m/s Right Ventricle Aorta AO Root Diam: 2.93 cm Ascending Ao Diam: 2.51 cm Aortic Valve AoV Area (Peak Kwaku): 2.42 cm2, 2.42 cm2 AoV Area (VTI): 2.94 cm2, 2.94 cm2 Peak Velocity(Antegrade Flow): 1.87 m/s Peak Gradient(Antegrade Flow): 13.98 mm[Hg] Mean Velocity(Antegrade Flow): 1.01 m/s Mean Gradient(Antegrade Flow): 4.99 mm[Hg] Velocity Time Integral: 27.37 cm Tricuspid Valve Pulmonic Valve Mean Gradient: 4.27 mm[Hg] Mean Velocity: 0.97 m/s Peak Velocity: 1.42 m/s, 1.32 m/s Peak Gradient: 6.92 mm[Hg], 8.09 mm[Hg] Right Atrium Right Atrium Systolic Pressure: 32.08 ml, 32.08 ml Dictated by: Bismark Pham M.D. on 03/26/2025 at 18:09 Approved by: Bismark Pham M.D. on 03/26/2025 at 18:13
== END 2025-03-26 13:46 | disposition home or self-care (01) ==
LOC: CARD 13:45
PROVIDERS: PCP Family Medicine; Visit Provider Internal Medicine Interventional Cardiology
DX: I25.10 Atherosclerotic heart disease of native coronary artery without angina pectoris (principal); I25.2 Old myocardial infarction; R06.02 Shortness of breath
CPT/HCPCS: 93306

== ENCOUNTER 2025-03-27 07:55 | Outpatient (OUT) | payer MEDICAID, SELFPAY ==
--- OUTSIDE RECORDS SUMMARY | 2023-11-28 10:10 | XMS_ITS ---
Author Organization [facility] Serv[facility] es Address [address] [place] [address] Care Team Providers Care Roentgenology Teacher Name Role Phone Melissa Becerra Primary Care Provider [phone] REASON FOR VISIT EXT Encounters Encounter Location Date Provider Diagnosis [address] [place] [address] 11/28/2023 Melissa Becerra Plan Of Treatment No Information Progress Notes * JUAN MANUEL ROBERTSONOB:1980 (44 yo F)Acc No.[id number]:11/28/2023 Patient:?RALF ROBERTSONHANY :?Melissa Becerra DDSDOB:1980???Age:43 Y ???Sex:FemaleDate:11/28/2023hone:[phone]:[address] [facility] Subjective: * Chief Complaints: * E XT Billing Information: * Procedure Codes: * Electronic signature of Melissa Becerra DDS on 03/27/2025 at 08:01 AM ESTSign off status: Pending * Provider: Heron Becerra DDS Date: 0 11/28/2023 Generated for Printing/Faxing/eTransmitting on:?03/27/2025 08:01 AM EST
--- OUTSIDE RECORDS SUMMARY | 2024-03-06 08:30 | XMS_ITS ---
Author Organization [facility] Serv[facility] es Address [address] [place] [address] Care Team Providers Care Crepe Box Tender Name Role Phone Melissa Becerra Primary Care Provider REASON FOR VISIT EXT Encounters Encounter Location Date Provider Diagnosis [address] [place] [address] 03/06/2024 Melissa Becerra Plan Of Treatment No Information Progress Notes * JUAN MANUEL ROBERTSONOB:1980 (44 yo F)Acc No.[id number]:03/06/2024 Patient:?RALF ROBERTSONHANY :?Melissa Becerra DDSDOB:1980???Age:43 Y ???Sex:FemaleDate:03/06/2024hone:[phone]:[address] [id number] Subjective: * Chief Complaints: * E XT * Electronic signature of Melissa Becerra DDS on 03/27/2025 at 08:00 AM ESTSign off status: Pending * Provider: Heron Becerra DDS Date: Generated for Printing/Faxing/eTransmitting on:?03/27/2025 08:00 AM EST
--- OUTSIDE RECORDS SUMMARY | 2024-11-18 08:00 | XMS_ITS ---
Author Organization [facility] es Address [address] [place] [address] Care Team Providers Care Affirmative Action Specialist Name Role Phone Melissa Becerra Primary Care Provider REASON FOR VISIT EXT Encounters Encounter Location Date Provider Diagnosis [address] [place] [address] 11/18/2024 Melissa Becerra Plan Of Treatment No Information Progress Notes * JUAN MANUEL ROBERTSONOB:1980 (44 yo F)Acc No.[id number]:11/18/2024 Patient:?RALF ROBERTSONHANY :?Melissa Becerra DDSDOB:1980???Age:44 Y ???Sex:FemaleDate:11/18/2024Phone:[phone]:[address] [facility] Subjective: * Chief Complaints: * E XT * Electronic signature of Melissa Becerra DDS on 03/27/2025 at 08:01 AM ESTSign off status: Pending * Provider: Heron Becerra DDS Date: 0 11/18/2024 Generated for Printing/Faxing/eTransmitting on:?03/27/2025 08:01 AM EST
--- OUTSIDE RECORDS SUMMARY | 2025-03-27 08:01 | XMS_ITS | Clinical Summary ---
Author Organization [facility] Address [address] [place] [address] Care Team Providers Care Feed House Supervisor Name Role Phone Marco A Palmer MD Primary Care Provider [phone] Allergies Active AllergyReactionsCriticalityNoted DateCommentsPropoxyphene N-Acetaminophen 05/17/2022 Medications MedicationSigDispense QuantityRefillsLast FilledStart DateEnd DateStatus etodolac (Lodine) 500 mg tablet Take 500 mg by mouth in the morning and at bedtime.12/16/2021ctive medroxyPROGESTERone (Depo-Provera) 150 mg/mL syringe injection syringe 03/23/2022ctive omeprazole (PriLOSEC) [address] capsule 05/12/2022ctive phentermine (Adipex-P) 37.5 mg tablet Take 37.5 mg by mouth.06/14/2023ctive aspirin 81 mg EC tablet Indications:Coronary artery disease involving [place] coronary artery of [place] heart without angina pectoris,Essential hypertensionTake 1 tablet (81 mg) by mouth once daily as directed. 90 tablet ctive metoprolol succinate XL (Toprol-XL) 50 mg 24 hr tablet Indications:Coronary artery disease involving [place] coronary artery of [place] heart without angina pectoris,Essential hypertensionTake 1 tablet (50 mg) by mouth once daily as directed. Do not crush or chew. 90 tablet ctive acetaminophen-codeine (Tylenol w/ Codeine #3) 300-30 mg tablet Take 1 tablet by mouth every 6 (six) hours.09/20/2023ctive rosuvastatin (Crestor) 40 mg tablet Indications:Coronary artery disease involving [place] coronary artery of [place] heart without angina pectoris,Mixed hyperlipidemiaTake 1 tablet (40 mg) by mouth in the evening. 90 tablet /ctive ezetimibe (Zetia) 10 mg tablet Indications:Coronary artery disease involving [place] coronary artery of [place] heart without angina pectoris,Mixed hyperlipidemiaTake 1 tablet [...] smoke. Discussed daily Aspirin therapy. Gastroesophageal reflux warroph99 Overview (08/22/2023): Last Assessment & Plan: Symptoms controlled with omeprazole and continue. Migraine without aura and without status migrainosus, not fzvtyovxoam65/05/2023 08/22/2023Morbid edsvwcy41 Overview (08/22/2023): Last Assessment & Plan: Patient [...] new or worsening symptoms contact office. Renal bgvygnc98 Overview (08/22/2023): Last Assessment & Plan: Recently admitted with obstructing stones but passed. Told still stones but no pain. Check US. If stones present may need to see urology. Seasonal allergic rhinitis due to cpwdxo96/01/2024H/O myocardial infarction, greater than 8 weeks07/15/2022 Assessment & Plan (07/15/2022 1:07 PM EST): Overall patient is doing very well no concerning symptoms today Coronary bigkpkekqyuuinsc39/05/2018 Assessment & Plan (07/15/2022 1:07 PM EST): Coronary artery disease is Without any concerning symptoms Continue goal-directed medical therapy with aspirin, Lipitor, lisinopril and Toprol Prescription provided for annual labs including CBC, CMP and lipid profile Pwtzkepzesqxum94/05/2018 Assessment & Plan (07/15/2022 1:07 PM EST): Continue statin and provided labs for routine lipid profile and liver function Acute myocardial pfvkzxdpez76/05/2017Essential lbembugwhefs62/05/2017 Assessment & Plan (07/15/2022 1:07 PM EST): Hypertension is Well-controlled blood pressure 127/84 Continue all medications including lisinopril 10 mg daily, Toprol Hlzbeywe88/05/6884Otzq68/05/2017Tobacco dependence naczgzok27/05/2017 Assessment & Plan (07/15/2022 1:08 PM EST): [...] file07/06/2023CommentsUnknownSex and Gender InformationValueDate RecordedSex Assigned at DbvxgRirogz10/17/2025 3:41 PM EDT Legal NleYsaclb53/29/2022 11:53 PM EDTGender XjazlaljUzejwk16/17/2025 3:41 PM EDTSexual OrientationHeterosexual or Yldksptg87/17/2025 3:41 PM EDT Last Filed Vital Signs Vital SignReadingTime TakenCommentsBlood Tczenvfy961/8504 3:59 PM EDT Lxbwc9161 3:59 PM EDTTemperature--Respiratory Rate--Oxygen Xmoadiiwez68% 08/19/2024 3:59 PM EDTInhaled Oxygen Concentration--Jwtimz48.2 kg (212 lb) 08/19/2024 3:59 PM SBNQdgcum697.4 cm (5')08/19/2024 3:59 PM EDTBody Mass Index 41.404 3:59 PM EDT Plan of Treatment DateTypeDepartmentCare Team (Latest Contact Info)Lmoltwsalnh71/13/2025 1:00 PM ESTOffice Visit [facility] [address] [place] [address] Mary Osorio, [address] [place] [address] Health MaintenanceDue DateLast DoneCommentsCT Qdwkpeilnflg1978Colonoscopy 1978Colorectal Cancer Aojgbaeou1978FIT-DNA1978FIT1978 FOBT1978 7736Dlrhgxlujsatu1978Depression Mtbsqpjql90/27/1990Hepatitis B Vaccines (1 of 3 - 19+ 3-dose series)1997Pneumococcal Vaccine: Pediatrics (0 to 5 Years) and At-Risk Patients (6 to 64 Years) (1 of 2 - PCV)1997Pap Smear1999Adult Osfssem1304/10/2000Cervical Cancer Tydldyxcq04/27/2008 HPV/Cyjnvp3104/10/20084973Ldfplvftx64/27/2018COVID-19 Vaccine (1 - season) 2025Influenza Vaccine (#1)2025Zoster [...] AAccount TypeRelation to PatientDate of BirthPhone Billing AddressPersonal/VfjssvWcnz1980 [address] [address] Care Teams Team MemberRelationshipSpecialtyStart DateEnd Date Marco A Palmer MD [address] [place] [address] PCP - General05/17/22
--- OUTSIDE RECORDS SUMMARY | 2025-03-27 08:01 | XMS_ITS | Clinical Summary ---
Author Organization [facility] Address [address] [place] [address] Care Team Providers Care Public Speaker Name Role Phone Marco A Palmer MD Primary Care Provider Allergies No known active allergies Medications MedicationSigDispense [...] 06/14/2023ctive Active Problems ProblemNoted DateDiagnosed DateGastroesophageal reflux xmaxpmb5604/18/2023 Assessment & Plan (06/14/2023 8:55 AM EST): Symptoms controlled with omeprazole and continue. Seasonal allergic rhinitis due to ctpqwr7504/18/2023Renal ijytwqw1304/18/2023 Assessment & Plan (04/18/2023 11:24 AM EST): [...] to smoke. Discussed daily Aspirin therapy. Morbid csyvjhv3604/18/2023 Assessment & Plan (06/14/2023 8:55 AM EST): [...] without aura and without status migrainosus, not umfshlziqex30/05/2023 Coronary arhqucjvjmjzvkvg50/05/2018 Overview (04/18/2023): Last Assessment & Plan: Coronary artery disease is Without any concerning symptoms Continue goal-directed medical therapy with aspirin, Lipitor, lisinopril and Toprol Prescription provided for annual labs including CBC, CMP and lipidprofile Urypkyisdyadyw25/05/2018 Overview (04/18/2023): Last Assessment & Plan: Continue statin and provided labs for routine lipid profile and liver function Essential jnnmnlgwbdak98/05/2017 Overview (04/18/2023): Last Assessment & Plan: Hypertension [...] 0.6 oz pure alcohol)PHQ-2AnswerDate RecordedPatient Health Questionnaire-2 Hknsg536 CommentsUnknownSex and Gender InformationValueDate RecordedSex Assigned at BirthNot on fileLegal SqsQdfefe01/15/2023 7:07 PM EDTGender IdentityNot on fileSexual OrientationNot on file Last Filed Vital Signs Vital SignReadingTime TakenCommentsBlood Ffnpoloh108/72006/14/2023 8:17 AM EST Ulqxy376406/14/2023 8:17 AM JKJUokcooufrlt08.6 ??C (97.8 ??F)06/14/2023 8:17 AM ESTRespiratory Rate--Oxygen Pzvzxuppbf28%06/14/2023 8:17 AM ESTInhaled Oxygen Concentration--Ogxfzd83.7 kg (211 lb)06/14/2023 8:17 AM WRBLycgui437.4 cm (5') 06/14/2023 8:17 AM ESTBody Mass Index41. 8:17 AM EST Plan of Treatment Not on file Insurance Care Teams Team MemberRelationshipSpecialtyStart DateEnd Date Marco A Palmer MD PCP - GeneralFamily Medicine06/14/23
--- OUTSIDE RECORDS SUMMARY | 2025-03-27 08:01 | XMS_ITS | Patient Health Record ---
Author Organization [facility] Address [address] [place] [address] Care Team Providers Care Chlorine Operator Name Role Phone Munajimmie Melissa Primary Care Provider [phone] Dr. Lui Linares Unavailable [phone] Reason For Referral No Information Medications Medication SIG (Take, Route, Frequency, Duration) Notes Start Date End Date Status Ibuprofen 800 MG Tablet 1 tablet with fo od or milk as needed Orally Three times a day 05/22/2023Unknown Encounters Encounter Location Date Provider Diagnosis [facility] [address] [place] [address] 10/29/2024 Lui Ervin [facility] [place] [address]/ [facility] [place] [address]/nara BecerraEncounter for dental examination and cleaning with [...] Coverage Start Date Coverage End Date [facility] [place] DQ Terminate d [address] [place] [phone] [id number] MARCELO JESS Self - patient is the insured 3 [employer] [place] BCBS Termed [address] [place] [address] [phone], RALFABELKali - patient is the insured 3[employer] COMMERCIALPO [address] [address] [place] [address] [phone], RALFSRIKANTHlai - patient is the [id number] 2024Dental Wrap [place] CFCP[address] [place] [id number] TERRIE ROBERTSONlai - patient is the [id number] 2024
--- OUTSIDE RECORDS SUMMARY | 2025-03-27 08:05 | XMS_ITS | CCD ---
Author Organization [facility] Scrip Productsat ion Partnership [facility] Care Team Providers Care Computer Security Coordinator Name Role Phone CHERELLE ., DR MAST [...] of OnsetReaction(s) Facility (1 source)Darvocet-N 100Drug allergy (disorder)04-82-4315UulPrem[facility] Repository (1 source)PROPOXYPHENE N-ACETAMINOPHEN; Translations: [PROPOXYPHENE N-ACETAMINOPHEN]Propensity to adverse reactions to drug (disorder)05-17-2022 [facility] Repository Problems Active Problems Problem ClassificationProblemDateDocumented DateEpisodic/ChronicAbdominal pain (4 sources)Unspecified abdominal pain; Translations: [UNSPECIFIED ABDOMINAL PAIN]Onset: 77-67-6322RplbiuufDkbisgpibgnz of device; implant or graft (2 sources)Atherosclerosis of coronary artery bypass graft(s) without angina pectoris; Translations: [Atherosclerosis of coronary artery bypass graft(s) without angina pectoris]Onset: 57-41-7854FwwlallGppsyjrs atherosclerosis and other heart disease (5 sources)Old myocardial infarction; Translations: [Atherosclerotic heart disease of [place] coronary artery without angina pectoris]Onset: 07-26-2022 ChronicCoronary atherosclerosis and other heart disease (2 sources)Presence of coronary angioplasty implant and graft; Translations: [Presence of coronary angioplastyimplant and graft]Onset: 03-02-0679Pjbdvwvz Disorders of lipid metabolism (2 sources)Mixed hyperlipidemia; Translations: [Mixed hyperlipidemia]Onset: 52-81-3682LxqcjywUzziwgsjvl disorders (1 source)Gastro-esophageal reflux disease without esophagitis; Translations: [GERD WITHOUT ESOPHAGITIS]Onset: 89-60-7715CysqbafHpvnoeekb hypertension (2 sources)Essential (primary) hypertension; Translations: [Essential (primary) hypertension]Onset: 45-65-1062WaqmugpStrmh aftercare (1 source)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; Translations: [MCFP CURRENT USE OF ASPIRIN]Onset: 66-82-5923JtymdxdpMicxn aftercare (1 source)Other acoustical carpenter (current) drug therapy; Translations: [OTH [facility] CURRENT DRUG THERAPY]Onset: 60-23-2076VaphptxeXndyr lower respiratory disease (2 sources)Shortness of breath; Translations: [Shortness of breath]Onset: 40-08-4380WhfpeqppYstnpbxnt and history of mental health and substance abuse codes (1 source)Personal history of nicotine dependence; Translations: [PERSONAL HISTORY OF NICOTINE DEPEND]Onset: 09-39-3155Cuuevapr Past or Other Problems Problem ClassificationProblemDateDocumented DateEpisodic/ChronicImmunizations and screening for infectious disease (1 source)Encounter for screening for human papillomavirus (HPV); Translations: [ENC SCREENING HUMAN PAPILLOMAVIRUS]Onset: 50-56-1305JxnpedstIwuys screening for suspected conditions (not mental disorders or infectious disease) (4 sources)Encounter for screening for malignant neoplasm of cervix; Translations: [ENC SCREENING MALIG NEOPLASM CERV]Onset: 38-97-9784Chvkkbyf Results Test NameValueInterpretationReference RangeFacilityOffice Visiton 08-19-2024 Follow-up [id number] Jess Robertson 1980 F Date Provider Department Center 08/19/2024 [facility] Family History Family Status - Relation Status Age at Mother Alive Father Alive Sister Level of Service:32094 [place] OFFICE/OUTPATIENT ESTABLISHED MOD MDM 30 MINNormal [facility] HospitalOffice Visiton 80-12-3633Bkawsp-up visit [id number] Jess Robertson Heron 1980 F Date Provider Department Center 08/22/2023 ABRAM LEON [facility] No family history on file Level of Service:07992 [place] OFFICE/OUTPATIENT ESTABLISHED MOD MDM 30 MIN Reason for Visit and Comments: Coronary Artery Disease [187] Hyperlipidemia [182]NormalOhioHealth Hardin Memorial HospitalCBC AUTO DIFFon 38-79-6137HJKW #0.1 103/ulNormal0.0-0.1[facility] CenterComment on above: Performed By: #### CBC #### [facility] [address] [address] [address] Tali DaiBasophils/100 WBC (Bld)0.6 %Normal0.2-2.0[facility] Comment on above:Performed By: #### CBC #### [facility] [address] [address] [address] Tali [place] #0.2 103/ulNormal0.0-0.7The [facility]imaComment on above: Performed By: #### CBC #### [facility] [address] [address] [address] Tali Aguilaosinophils/100 WBC (Bld)1.9 %Normal0.9-7.0[facility] Comment on above:Performed By: #### CBC #### [facility] [address] [address] [address] Tali Aguilarythrocyte distribution width (RBC) [Ratio]13.1 %Polvim76.0-15.0 [facility] CenterComment on above:Performed By: #### CBC #### [facility] [address] [address] [address] Tali DaiHematocrit (Bld) [Volume fraction]39.9 %Ayrasw79.0-48.0The [facility]imaComment on above:Performed By: #### CBC #### [facility] [address] [place] [address] Dr. Tali DaiHemoglobin (Bld) [Mass/Vol]13.6 g/lWFqliie28.0-16.0The [facility]imaComment on above:Performed By: #### CBC #### [facility] [address] [place] [address] Dr. Tali Felix #0.03 10e3/ulNormal0.00-0.03The [facility]imaComment on above:Performed By: #### CBC #### [facility] [address] [place] [address] Dr. Tali Felix %0.3 %Normal0.0-0.5The [facility]imaComment on above: Performed By: #### CBC #### [facility] [address] [place] [address] Dr. Tali Cruz #2.9 103/ulNormal1.2-3.8The [facility]imaComment on above:Performed By: #### CBC #### [facility] [address] [place] [address] Dr. Tali Pelletierhocytes/100 WBC (Bld)27.0 %Yclhqv07.5-60.0The [facility]imaComment on above:Performed By: #### CBC #### [facility] [address] [place] [address] Dr. Tali LaoUAL DIFF REQNONormalThe [facility]imaComment on above: Performed By: #### CBC #### [facility] [address] [place] [address] Dr. Tali Soriano (RBC) [Entitic mass]32.4 qyUjxifv73.7-34.0The [facility]imaComment on above:Performed By: #### CBC #### [facility] [address] [place] [address] Dr. Tali Gerber (RBC) [Mass/Vol]34.1 g/wLQngtrz29.9-35.2The [facility]imaComment on above:Performed By: #### CBC #### [facility] [address] [place] [address] Dr. Tali Llanos (RBC) [Entitic vol]95.0 fFFmaydu24.0-99.0The [facility]imaComment on above:Performed By: #### CBC #### [facility] [address] [place] [address] Dr. Tali Williamson #0.7 103/ulNormal0.3-0.8The [facility]imaComment on above:Performed By: #### CBC #### [facility] [address] [place] [address] Dr. Tali Fitzpatrickocytes/100 WBC (Bld)6.3 %Normal1.7-12.0[facility] Comment on above:Performed By: #### CBC #### [facility] [address] [place] [address] Dr. Tali Menjivar #6.8 103/ulCritically high1.4-6.5The [facility] Comment on above:Performed By: #### CBC #### [facility] [address] [place] [address] Dr. Tali Armentautrophils/100 WBC (Bld)63.9 %Yavmsc69.0-75.0The [facility]imaComment on above:Performed By: #### CBC #### [facility] [address] [place] [address] Dr. Tali Escobar mean volume (Bld) [Entitic vol]9.2 fLCritically low 9.5-13.5The [facility]imaComment on above:Performed By: #### CBC #### [facility] [address] [place] [address] Dr. Tali DaiPLT375 103/goHlwylo587-544Bej [facility]imaComment on above: Performed By: #### CBC #### [facility] [address] [place] [address] Dr. Tali DaiRBC4.20 106/ulNormal4.20-5.40The [facility]imaComment on above:Performed By: #### CBC #### [facility] [address] [place] [address] Dr. Tali DaiWBC10.6 103/ulNormal4.0-11.0The [facility]imaComment on above:Performed By: #### CBC #### [facility] [address] [place] [address] Dr. Tali DaiCT ABD/PELVIS WO CONon 73-66-8433NL ABD/PELVIS WO CONEXAMINATION: CT ABD/PELVIS WO CON [...] Electronically authenticated by: KRISTINE CASSIDY Date: 2022-07-25 07:51NormFirelands Regional Medical Center URINE PROFILEon 20-06-5196Afakgwyzj Ql (U)NegativeNormal NEGATIVEThe [facility]imaComment on above:Performed By: #### ERUR #### [facility] [address] [address] [address] Tali aDiClarity (U)CLEARNormalCLEARPremier Health Upper Valley Medical CenterComment on above: Performed By: #### ERUR #### [facility] [address] [place] [address] Dr. Tali Luther (U)LT. YELLOWNormalYELLOWPremier Health Upper Valley Medical CenterComment on above:Performed By: #### ERUR #### [facility] [address] [address] [address] Tali Stafford micrscopic examination will be performed if indicated. NormalPremier Health Upper Valley Medical CenterComment on above:Performed By: #### ERUR #### [facility] [address] [place] [address] Dr. Tali DaiGlucose Ql (U)NegativeNormalNEGATIVEPremier Health Upper Valley Medical CenterComment on above:Performed By: #### ERUR #### [facility] [address] [place] [address] Dr. Tali DaiHemoglobin Ql (U)NegativeNormalNEGATIVECleveland Clinic Avon Hospital on above:Performed By: #### ERUR #### [facility] [address] [place] [address] Dr. Tali DaiKetones Ql (U)NegativeNormalNEGATIVEPremier Health Upper Valley Medical CenterComment on above:Performed By: #### ERUR #### [facility] [address] [place] [address] Dr. Tali DaiLEUKOCYTESNegativeNormalNEGATIVEPremier Health Upper Valley Medical CenterComment on above:Performed By: #### ERUR #### [facility] [address] [address] [address] Tali DaiNitrite Ql (U)NegativeNormalNEGATIVEPremier Health Upper Valley Medical CenterComment on above:Performed By: #### ERUR #### [facility] [address] [place] [address] Dr. Tali DaipH (U)6.0 [pH]Normal5-9[facility] Medical CenterComment on above: Performed By: #### ERUR #### [facility] [address] [place] [address] Dr. Tali DaiSPEC GRAVITY1.527Kbbezb5.005-<=1.025The [facility]imaComment on above:Performed By: #### ERUR #### [facility] [address] [place] [address] Dr. Tali Mcneal PROTEINNegativeNormalNEGATIVE/ TRACEThe [facility] Comment on above:Performed By: #### ERUR #### [facility] [address] [place] [address] Dr. Tali Millard MICRO INDNOT INDICATEDNormalThe [facility]imaComment on above:Performed By: #### ERUR #### [facility] [address] [place] [address] Dr. Tali Colebilinogen Qn (U)0.2 {Jefe'U}/dLNormal0.2 - 1.0The [facility]imaComment on above:Performed By: #### ERUR #### [facility] [address] [place] [address] Dr. Tali DaiLIPASEon 11-15-2404Hpfyfx [Catalytic activity/Vol]254.0 U/LNormal 73.0-393.0The [facility]imaComment on above:Performed By: #### LIPA, HSTROPN #### [facility] [address] [place] [address] Dr. Tali DaiPROF 14(COMP METB)on 81-91-2789Mxklnht [Mass/Vol]3.7 g/dLNormal 3.4-5.0The [facility]imaComment on above:Performed By: #### CMP #### [facility] [address] [place] [address] Dr. Tali DaiAlbumin/Globulin [Mass ratio]1.1 {ratio}NormalThe [facility]imaComment on above:Performed By: #### CMP #### [facility] [address] [place] [address] Dr. Tali DaiALP [Catalytic activity/Vol]66 U/EOylwns69-001Ftw [facility]imaComment on above:Performed By: #### CMP #### [facility] [address] [address] [address] Tali SarkarT [Catalytic activity/Vol]30 U/JRolwvs05-37Uhy [facility]imaComment on above:Performed By: #### CMP #### [facility] [address] [address] [address] Tali Sheltonon gap [Moles/Vol]13.5 mmol/LNormalThe [facility] Comment on above:Performed By: #### CMP #### [facility] [address] [address] [address] Tali DaiAST [Catalytic activity/Vol]19 U/RJuhlpw17-72Cgx [facility]imaComment on above:Performed By: #### CMP #### [facility] [address] [address] [address] Tali DaiBilirubin [Mass/Vol]0.4 mg/dLNormal0.2-1.0The [facility] Comment on above:Performed By: #### CMP #### [facility] [address] [address] [address] Tali DaiCalcium [Mass/Vol]9.1 mg/dLNormal8.5-10.1[facility] Comment on above:Performed By: #### CMP #### [facility] [address] [address] [address] Tali DaiChloride [Moles/Vol]107 mmol/OHqgvrb35-262Lkr [facility] Comment on above:Performed By: #### CMP #### [facility] [address] [address] [address] Tali DaiCO2 [Moles/Vol]25.3 mmol/YTexukm54.0-32.0The [facility] Comment on above:Performed By: #### CMP #### [facility] [address] [address] [address] Tali DaiCreatinine [Mass/Vol]0.95 mg/dLNormal0.55-1.02The [facility] HospitalComment on above:Performed By: #### CMP #### [facility] [address] [address] [address] Tali AguilaGFR-AF EAST TIMORESE>60Normal>=60The [facility]imaComment on above:Performed By: #### CMP #### [facility] [address] [address] [address] Tali AguilaGFR-NON AF EAST TIMORESE>60Normal>=60The [facility]imaComment on above:Performed By: #### CMP #### [facility] [address] [address] [address] Tali DaiGlobulin (S) [Mass/Vol]3.4 g/dLNormalThe [facility]imaComment on above:Performed By: #### CMP #### [facility] [address] [address] [address] Tali DaiGlucose [Mass/Vol]96 mg/mRUggysg50-974ArdPremier Health [facility] Center Comment on above:Performed By: #### CMP #### [facility] [address] [address] [address] Tali DaiPotassium [Moles/Vol]3.8 mmol/LNormal3.5-5.1[facility] Comment on above:Performed By: #### CMP #### [facility] [address] [address] [address] Tali DaiProtein [Mass/Vol]7.1 g/dLNormal6.4-8.2The [facility] Comment on above:Performed By: #### CMP #### [facility] [address] [address] [address] Tali DaiSodium [Moles/Vol]142 mmol/VMvmixz949-810Bgh [facility] Comment on above:Performed By: #### CMP #### [facility] [address] [address] [address] Tali DaiUrea nitrogen [Mass/Vol]11.0 mg/dLNormal7.0-18.0The [facility]imaComment on above:Performed By: #### CMP #### [facility] [address] [address] [address] Tali DaiUrea nitrogen/Creatinine [Mass ratio]11.6 mg/mgNoUK HealthcareComment on above:Performed By: #### CMP #### [facility] [address] [address] [address] Tali BrowningOPONIHolli, HIGH SENSITIVITYon 58-59-2960LIEQRG3.0 pg/mLNormal 4.0-51.3The [facility]Comselect [facility] on above:Result Comment: CUT-OFF POINTS HAVE BEEN ESTABLISHED BASED ON THE FOURTH UNIVERSAL DEFINITIONS OF MYOCARDIAL INFARCTION. THE UPPER REFERENCE LIMIT (URL) OF TROPONIN, DEFINED THE 99TH PERCENTILE OF cTnI DISTRIBUTION IN A REFERENCE POPULATION, HAS BEEN CONFIRMED THE DECISION THRESHOLD FOR [place] DIAGNOSIS.Performed By: #### LIPA, HSTROPN #### [facility] [address] [place] [address] Dr. Tali DaiXR ABD FLAT UP_PA Lawanda 49-10-9539NX ABD FLAT UP_PA CHEXAM: XR ABD FLAT [...] Electronically authenticated by: AYANA KINNEY Date: 2022-07-25 07:23[facility] ACOG PANEL 2: 30 to 65on 02-08-2022..NormalThe [facility] on above:Result Comment: Performed at: WBPerformed By: #### [id number] #### [facility] [address] [place] [address] Dr. Tali Cee Gdln ACOG Tosmugn76-98LhmdnpEipUK HealthcareComment on above:Performed By: #### [id number] #### [facility] [address] [place] [address] Dr. Tali DaiDIAGNOSIS:CommentParkwood Hospital on above: Result Comment: NEGATIVE FOR INTRAEPITHELIAL LESION OR MALIGNANCY. Performed at: WBPerformed By: #### [id number] #### [facility] [address] [place] [address] Dr. Tali DaiHPV AptimaNegativeNormalNegativeThe [facility]imaComselect [facility] on above:Result Comment: This nucleic acid amplification test detects fourteen high-risk HPV types (16,18,31,33,35,39,45,51,52,56,58,59,66,68) without differentiation. Performed at: =GPerformed By: #### [id number] #### [address] [address] [address] Tali DaiMethodology:CommentParkwood Hospital on above: Result Comment: This liquid based ThinPrep(R) pap test was screened with the use of an image guided system. Performed at: WBPerformed By: #### [id number] #### [address] [address] [address] Tali DaiNote:CommentParkwood Hospital on above:Result Comment: The Pap smear is a screening test designed to aid in the detection of premalignant and malignant conditions of the uterine cervix. It is not a diagnostic procedure and should not be used as the sole means of detecting cervical cancer. Both false-positive and false-negative reports do occur. . Performed at: WBPerformed By: #### [id number] #### [facility] [address] [place] [address] Dr. Tali DaiPerformed by:CommentParkwood Hospital on above: Result Comment: Carina Munoz, Qc Manager (ASCP) Performed at: WBPerformed By: #### [id number] #### [address] [place], [place] [address] Dr. Tali DaiSpecimen adequacy:CommentNoUK HealthcareComment on above:Result Comment: Satisfactory for evaluation. Endocervical and/or squamous metaplastic cells (endocervical component) are present. Performed at: WBPerformed By: #### [id number] #### [facility] [id number] Tali Dai Encounters Encounter DateEncounter Type[facility] ProviderFacilityStart: 08-19-2024 End: 08-41-5395drzuvkhrydDIMDKE [facility] Start: 08-22-2023 End: 20-76-0994uyghpktocvKPPGHRZ [facility]2023 End: 67-83-1640deduiyrdwvHMZX NADERERNot AvailableStart: 06-14-2023 End: 19-21-5830vkjoqvpovrZLIR NADERERNot AvailableStart: 04-18-2023 End: 46-20-9781dpgafsehwwARUF NADERERNot AvailableStart: 04-18-2023 End: 92-10-7997qzlcwmlwobPOOL NADERERNot AvailableStart: 07-25-2022 End: 33-14-9813qrlnoewtfzNX PRO CHERELLE .Facility:J8Vapsk: 02-01-2022 End: 83-77-0262rgzajvvswbLS DEBBY BURKS .Facility: Payers DatePayer CategoryPayerPolicy [id number] 1980Unknown [id number] [id number] [id number] [id number] Progress note 08-19-2024 Note Date & ZubzPsbrNaqgkutb50-51-5515 NoteUT Cardiology - [facility] Subjective Jess Robertson is a 44 [...] 90 tablet, Rfl: 3 (more content not included)...[facility] Progress note 08-22-2023 Note Date & BojgTmgiXxismkmc89-64-6749 NoteCardiovascular Medicine [facility] SUBJECTIVE Chief Complaint Patient presents with [...] Final Atrial Rate 03/11/2019 69 BPM Final [place] Interval 03/11/2019 132 ms Final QRS DURATION 03/11/2019 102 ms Final QT Interval 03/11/2019 396 ms Final QTC CALCULATION(BEZET) 03/11/2019 424 ms Final P Gratis 03/11/2019 63 degrees Final R-Gratis 03/11/2019 65 degrees Final T Wave Gratis 03/11/2019 17 degrees Final Diagnosis 03/11/2019 Final Value:Normal sinus rhythm with sinus arrhythmia Low voltage QRS T wave abnormality, consider anterior ischemia Abnormal ECG When compared with ECG of 11-MAR-2019 14:05, (unconfirmed) No significant change was found Confirmed by STRESS, ([id number]), technical writer and editor Kya Martinez ([id number]) on 03/11/2019 1:51:57 PM No results found for: EXTCMP , BMPR1A , CBCDIF , BNP , LASAP , RED L (more content not included)...[facility] Progress note 08-22-2023 Note Date & EergXtalBzysiyhp84-70-7422 NotePatient here for 1 year follow up CAD, hypertension, and hyperlipidemia. Had lipid panel drawn this morning. Denies chest pain, SOB, palpitations, and lightheadedness. Has been doing very well from cardiac standpoint. Review of Systems All other systems reviewed and are negative.[facility] Summary Purpose Family History No Family History Records FoundNo Family History Records FoundNo Family History Records FoundNo Family History Records Found Advance Directives No Advanced Directives Records FoundNo Advanced Directives Records FoundNo Advanced Directives Records FoundNo Advanced Directives Records Found Additional Source Comments INFORMATION SOURCE (unrecogn ized section and content) DATE CREATED AUTHOR 07/27/2022 [facility] DATE CREATED AUTHOR AUTHOR'S ORGANIZ ATION 06/15/2023 [facility] EPIC DATE CREATED AUTHOR AUTHOR'S ORGANIZ ATION 12/27/2023 [facility] EPIC DATE CREATED AUTHOR AUTHOR'S ORGANIZ ATION 08/20/2024 [facility] FOR RECORDS PERTAINING TO PATIENTS WHO [...] BE BASED ON THE PRIMARY CLINICAL RECORDS. [facility] [employer] [facility]. provides no warranty or guarantee of the accuracy or completeness of information in this document.
[2025-03-27 08:35] LABS: Hematocrit 40.9 % (36.0-48.0); Hemoglobin 13.9 g/dL (12.0-16.0); Immature Granulocytes Abs Auto 0.03 10^3/uL (0.00-0.03); Immature Granulocytes Pct Auto 0.3 % (0.0-0.5); Lymphocytes Absolute Auto 1.7 10^3/uL (1.2-3.8); Mean Corpuscular HGB Conc 34.0 g/dL (29.9-35.2); Mean Corpuscular Hemoglobin 32.9 pg (26.7-34.0); Mean Corpuscular Volume 96.9 fL (81.0-99.0); Platelet Count 430 10^3/uL (150-450); Red Blood Count 4.22 10^6/uL (4.20-5.40); White Blood Count 9.8 10^3/uL (4.0-11.0)
[2025-03-27 09:29] LABS: Alanine Aminotransferase 38 U/L (14-59); Albumin Globulin Ratio 1.0; Albumin Level 3.8 g/dL (3.4-5.0); Alkaline Phosphatase 75 U/L (46-116); Anion Gap 13.4; Aspartate Amino Transferase 19 U/L (15-37); Blood Urea Nitrogen 9.0 mg/dL (7.0-18.0); Calcium 9.2 mg/dL (8.5-10.1); Carbon Dioxide 24.6 mmol/L (21.0-32.0); Chloride 107 mmol/L (98-107); Cholesterol 247 mg/dL (<=200); Estimated GFR (African America >60 (>=60 mL/min/1.73m^2); Estimated GFR (Non-African Ame 55 (>=60 mL/min/1.73m^2); Globulin 3.8 g/dL; Glucose 113 mg/dL (74-106); HDL Cholesterol 36 mg/dL (40-60); Potassium 4.0 mmol/L (3.5-5.1); Sodium 141 mmol/L (136-145); Total Protein 7.6 g/dL (6.4-8.2); Triglycerides 127 mg/dL (<=150); VLDL CHOLESTEROL 25.4 mg/dL
== END 2025-03-27 07:56 | disposition home or self-care (01) ==
LOC: LAB 07:58
PROVIDERS: PCP Family Medicine; Visit Provider Internal Medicine Interventional Cardiology
DX: E78.2 Mixed hyperlipidemia (principal); I25.10 Atherosclerotic heart disease of native coronary artery without angina pectoris
CPT/HCPCS: 36415; 80053; 80061; 85025